=== PATIENT | male | born 1945 | race African-American/Black ===

== ENCOUNTER → 2016-06-28 | Outpatient (CLI) | payer OTHER ==
[~2016-06-28] MED LIST: AMLO10 PO; NAPR500 PO; ROBA500T PO
[2016-06-28 08:31] LABS: HEMATOCRIT 40.6 % (39.0-51.0); HEMO FLAGS DIFF FINAL; LYMPH % 24.7 % (9.0-44.0); MEAN CELL VOLUME 80.4 FL (80.0-100.0); MEAN CORPUSCULAR HEMOGLOBIN 27.8 PG (27.0-34.0); MEAN CORPUSCULAR HGB CONC 34.6 % (32.0-36.0); MONO % 10.8 % (0.0-8.0); NEUT % 58.7 % (16.0-70.0); PLATELET COUNT 224 TH/MM3 (150-450); RED BLOOD COUNT 5.05 MIL/MM3 (4.50-5.90); RED CELL DISTRIBUTION WIDTH 13.6 % (11.6-17.2)
[2016-06-28 08:32] LABS: BASOPHIL # 0.1 TH/MM3 (0-0.2); BASOPHIL % 1.1 % (0.0-2.0); EOSINOPHIL # 0.2 TH/MM3 (0-0.4); EOSINOPHIL % 4.7 % (0.0-4.0); LYMPHOCYTE # 1.2 TH/MM3 (1.0-4.8)
[2016-06-28 08:38] LABS: BLOOD, URINE NEG (NEG); GLUCOSE,URINE NEG (NEG); KETONE, URINE NEG (NEG); NITRITE,URINE NEG (NEG); SQUAMOUS EPITHELIAL CELL URINE 1 /hpf (0-5); URINE COLOR YELLOW (YELLW/STRAW)
[2016-06-28 08:40] LABS: APTT (PATIENT) 26.3 SEC (24.3-30.1)
[2016-06-28 08:56] LABS: WESTERGREN SEDIMENTATION RATE 21 mm/hr (0-20)
[2016-06-28 09:02] LABS: ALKALINE PHOSPHATASE 151 U/L (45-117); ALT (GPT) 14 U/L (12-78); ANION GAP 8 MEQ/L (5-15); AST (GOT) 6 U/L (15-37); BICARBONATE 27.4 MEQ/L (21.0-32.0); BLOOD UREA NITROGEN 13 MG/DL (7-18); CHLORIDE 108 MEQ/L (98-107); GLOMERULAR FILTRATION RATE 74 ML/MIN (>89); GLUCOSE,FASTING 86 MG/DL (74-99); SODIUM (NA) 143 MEQ/L (136-145); TOTAL BILIRUBIN ADULT 0.8 MG/DL (0.2-1.0)
== END ==
LOC: CLAB 08:03
PROVIDERS: ATTEND Family Medicine
DX: Z01.812 Encounter for preprocedural laboratory examination (principal); M25.511 Pain in right shoulder
CPT/HCPCS: 36415; 80053; 81001; 85025; 85610; 85652; 85730

== ENCOUNTER → 2016-07-04 | Outpatient (CLI) | payer MEDICARE, OTHER | LOC: CLAB 07:30 | PROVIDERS: ATTEND Family Medicine | DX: E87.6 Hypokalemia (principal) | CPT/HCPCS: 36415; 84132 ==

== ENCOUNTER → 2016-07-12 | Outpatient (CLI) | payer OTHER | LOC: CLAB 08:55 | PROVIDERS: ATTEND Family Medicine | DX: E87.1 Hypo-osmolality and hyponatremia (principal) | CPT/HCPCS: 36415; 84132 ==

== ENCOUNTER 2016-12-22 12:09 | Inpatient (IN) | payer OTHER, MEDICARE ==
[~2016-12-22] VITALS: Ht 180.3 cm; Wt 95.8 kg
[2017-02-09] MEDS ORDERED: CHLORHEXIDINE GLUCONATE 2 % 1 PACK (2 CLOTHS) TOPICAL PRN (10:15)
[2017-02-09] MEDS ORDERED: METOPROLOL TARTRATE 25 MG TAB PO PRN (10:15)
[2017-02-09] MEDS ORDERED: POVIDONE IODINE 5% (ANTISEPSIS KIT) 4 APPLICATIONS EACH NARE PRN (10:15)
[2017-02-09] MEDS ORDERED: LACTATED RINGER'S 1000 ML IV PRN (10:15)
[2017-02-09] MEDS ORDERED: ROPIVACAINE PERI-ARTICULAR INJECTION. P-ARTICULR SCH ×5 (10:15)
[2017-02-09] MEDS ORDERED: SODIUM CHLORID 0.9% 500 ML IV PRN (10:15)
[2017-02-09] MEDS ORDERED: VANCOMYCIN 1000 MG/NS 250 ML (for <70 kg) IV SCH ×2 (10:15)
[2017-02-09] MEDS ORDERED: INSULIN HUMAN REGULAR 1,000 UNITS/10 ML VIAL SQ PRN (10:15)
[2017-02-09] MEDS ORDERED: POVIDONE IODINE 7.5% SCRUB 118 ML BOTTLE TOPICAL SCH (10:15)
[2017-02-09] MEDS ORDERED: ceFAZolin 2 GM PREMIX 50 ML IV SCH (10:15)
[2017-02-09] MEDS ORDERED: BUPIVACAINE LIPOSOME PF 1.3% 20 ML VIAL ONE (10:23)
[2017-02-09] MEDS ORDERED: TRAM50TA PO (10:33)
[2017-02-09] MEDS ORDERED: LISI10TA3 PO (10:33)
[2017-02-09] MEDS ORDERED: OMEP20TA PO (10:33)
[2017-02-09] MEDS ORDERED: MELO-1 PO (10:33)
[2017-02-09 10:47] LABS: BASOPHIL % 0.9 % (0.0-2.0); EOSINOPHIL # 0.1 TH/MM3 (0-0.4); EOSINOPHIL % 3.1 % (0.0-4.0); HEMATOCRIT 41.8 % (39.0-51.0); HEMO FLAGS DIFF FINAL; LYMPH % 21.7 % (9.0-44.0); MEAN CORPUSCULAR HEMOGLOBIN 27.5 PG (27.0-34.0); MEAN CORPUSCULAR HGB CONC 33.9 % (32.0-36.0); MONO % 8.8 % (0.0-8.0); NEUT % 65.5 % (16.0-70.0); PLATELET COUNT 232 TH/MM3 (150-450); RED BLOOD COUNT 5.16 MIL/MM3 (4.50-5.90); RED CELL DISTRIBUTION WIDTH 13.3 % (11.6-17.2); WHITE BLOOD COUNT 4.6 TH/MM3 (4.0-11.0)
[2017-02-09] MEDS ORDERED: ePHEDrine/NS 25 MG/5 ML SYR IV ONE (12:00)
[2017-02-09] MEDS ORDERED: PROPOFOL 200 MG/20 ML AMP IV ONE (12:00)
[2017-02-09] MEDS ORDERED: LACTATED RINGER'S 1000 ML INJ 1,000 ML IV ONE (12:00)
[2017-02-09] MEDS ORDERED: ONDANSETRON HCL 4 MG/2 ML VIAL IV PUSH ONE (12:00)
[2017-02-09] MEDS ORDERED: GENTAMICIN SULFATE 80 MG/2 ML VIAL ONE (13:36)
[2017-02-09] MEDS ORDERED: HYDROmorphone HCL PF 2 MG/ML VIAL ONE (13:51)
[2017-02-09] MEDS ORDERED: MIDAZOLAM HCL 2 MG/2 ML VIAL ONE (14:31)
[2017-02-09] MEDS ORDERED: ALUMINUM/MAGNESIUM/SIMETH 30 ML CUP PO PRN (17:15)
[2017-02-09] MEDS ORDERED: SODIUM CHLORIDE 0.9% FLUSH 5 ML FLUSH IVF PRN (17:15)
[2017-02-09] MEDS ORDERED: MORPHINE SULFATE 8 MG/ML INJ IM PRN (17:15)
[2017-02-09] MEDS ORDERED: ACETAMINOPHEN/HYDROcodone 325 MG/7.5 MG TAB PO PRN (17:15)
[2017-02-09] MEDS ORDERED: ZOLPIDEM TARTRATE 5 MG TAB PO PRN (17:15)
[2017-02-09] MEDS ORDERED: ONDANSETRON HCL 4 MG/2 ML VIAL IVP PRN (17:15)
[2017-02-09] MEDS ORDERED: Post-op Orders (for Pharmacy) MISC XX ONE (17:15)
[2017-02-09] MEDS ORDERED: *morphine SULFATE 8 MG/ML PERIprocedure ONLY ONE (18:44)
[2017-02-09] MEDS: LACTATED RINGER'S 1000 ML INJ 1,000 ML IV SCH (18:45)
--- NOTE | 2017-02-09 19:32 | RADRPT ---
EXAM DATE/TIME: 02/09/2017 18:18 [facility] COMPARISON: KNEE LEFT LTD (1 OR 2VWS), January 03, 2017, 14:13. INDICATIONS : Post op left knee surgery. MEDICAL HISTORY : Unobtainable. SURGICAL HISTORY : Unobtainable. ENCOUNTER: Initial ACUITY: 1 day PAIN SCORE: Non-responsive. LOCATION: Left knee. FINDINGS: Two view examination of the left knee demonstrates a total knee arthroplasty. The components are appr opriately positioned. There is bony cement subjacent to the medial aspect of the tibial plate which a ppears to fill in a previous hemiarthroplasty. Suprapatellar drain is in place with no obvious effusi on. CONCLUSION: Total knee arthroplasty as above. No fracture. Bert Earl MD on February 09, 2017 at 19:29 Board Certified Radiologist. This report was verified electronically.
[2017-02-09] MEDS: ACETAMINOPHEN/HYDROcodone 325 MG/7.5 MG TAB PO PRN (20:18)
[2017-02-09] MEDS: SODIUM CHLORIDE 0.9% FLUSH 5 ML FLUSH IVF SCH (20:19)
[2017-02-09 20:35] VITALS: BP 136/91; PULSE 70; RESP 18; TEMP 98.1; O2SAT 98
[2017-02-10] VITALS: BP 116/77; PULSE 75; RESP 18; TEMP 97.3; O2SAT 100
[2017-02-10] MEDS: ACETAMINOPHEN/HYDROcodone 325 MG/7.5 MG TAB PO PRN ×3 (01:13→13:25)
[2017-02-10 04:27] VITALS: BP 121/77; PULSE 65; RESP 18; TEMP 97.4; O2SAT 98
[2017-02-10] MEDS: LACTATED RINGER'S 1000 ML INJ 1,000 ML IV SCH (06:30)
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
[2017-02-10] MEDS ORDERED: WALKER WHEELS/F1 MIS (07:08)
[2017-02-10] MEDS ORDERED: BEDSIDE COMMODE1 MI1 (07:08)
[2017-02-10] MEDS ORDERED: CPMMACHINE (07:08)
--- NOTE | 2017-02-10 07:09 | HHI.FF ---
Face to Face Verification Diagnosis: (1) Osteoarthritis of left knee Physical Therapy Gait training, Transfer training, bed to chair Knee: Total knee, Protocol: Left, Full weight bearing Right LE Weight Bearing: WB as tolerated Left LE Weight Bearing: WB as tolerated Nursing RN Days per Week: 3 x Week(s): 2 Nursing: Dressing changes (clean with alcohol and apply dry dressing ) I have seen patient Clayton Brunner on 02/10/17. My clinical findings support the need for the requested home health care services because: Deconditioned w/ increased weakness I certify that my clinical findings support that this patient is homebound because: Post-op weakness Arturo Cantor MD Feb 10, 2017 07:09
[2017-02-10 08:00] VITALS: BP 118/70; PULSE 82; RESP 17; TEMP 98; O2SAT 97
--- NOTE | 2017-02-10 08:16 | PD.OP ---
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 Varus deformity left leg, severe Postoperative Diagnosis: Same Procedure: Revision left total knee replacement arthroplasty Anesthesia: Gen. Surgeon: Garrett Cantor Forest Supervisor(s): Arturo Cantor M.D. Operation and Findings: EBL: [] INDICATION: This patient presents with long-standing arthritis of the knee. The patient had a previous medial compartment resurfacing arthroplasty by another surgeon in town approximately 8 years ago. This has failed. The patient has a significant varus deformity. This patient's function is significantly altered. Attachment record documents conservative measures. The patient now presents for surgical treatment. NOTE: Arturo Cantor was present for the entire surgical procedure as my statistical assistant. In my medical opinion his skill and care was necessary for proper management of this patient. TOURNIQUET TIME: 125 minutes COMPANY: [employer] FEMUR: Size 5, posterior stabilized, cemented TIBIA: Size 5, fixed bearing. 14 mm x 115 mm tibial stem PATELLA: 41 mm POLYETHYLENE INSERT: Size 5, 12.5, posterior stabilized mm PROCEDURE: This patient was brought the operating room and anesthetized in the supine position. The patient was positioned supine on the table. The tourniquet was placed about the thigh, and the leg was scrubbed with alcohol followed by Hibiclens followed by ChloraPrep and draped sterilely. A timeout was done, and antibiotics were given. After exsanguination the tourniquet was inflated to 250 mmHg. An anterior incision was made excising the previous incision and a median parapatellar arthrotomy was performed. The patella was released laterally and subluxed allowing freehand cut of the patella which was then sized. A metal cap was placed over the exposed patellar surface for protection. A instructor pilot hole was placed in the distal femur allowing a 7 valgus cut removing 10 mm from the distal femur. There was a resurfacing arthroplasty in the medial compartment. Very carefully this was removed using a combination of osteotomes and Casey. There was very little bone was removed from it. It appeared to be a minimally cemented component. Removal did not D structure lies the bone in that region. Anterior posterior and chamfer cuts were made. The posterior stabilize osteotomy was made. The attention was directed to the tibia. Retractors were positioned. The internal alignment guide was used allowing the lateral tibia to be used as referencing guide and cut utilizing an oscillating saw taking care to avoid any injury to the surrounding soft tissues. There was significant bony erosion medially. The tibial component was removed which created a cavitary defect. That component was loose and subsided especially anteriorly. We removed approximately 12 mm from the lateral side. This allowed us to have a very nice shelf of solid bone posteriorly having only a cavitary defect anteriorly and medially. This was sized properly. Trial reduction showed that the insert fit nicely. The patient had range of motion extension 0 flexion 125. A medial release was necessary. It included a posterior medial release and a deep MCL release partially. The bony surfaces prepared. On the back table 2 packets of methylmethacrylate were mixed. The components were cemented. Excess cement was removed. The tourniquet let down and hemostasis was controlled. The final plastic insert was inserted. Range of motion was the same as previously noted. A drain was brought through a separate stab incision. The arthrotomy was repaired with interrupted #1 Vicryl suture, subcutaneous tissue 2-0 Vicryl suture and skin with metallic linwood A sterile dressing was applied. Sponge counts, needle counts and instrument counts were all correct. The patient tolerated procedure well and was taken to recovery in satisfactory condition. FINDINGS: There was significant varus deformity related to failure of the tibial component which had subsided substantially. The final solution appeared be very satisfactory. No complication was appreciated. Garrett Cantor MD Feb 10, 2017 08:16
[2017-02-10 08:45] LABS: INTERNATIONAL NORMALIZED RATIO 1.1 RATIO; PROTHROMBIN TIME - PATIENT 12.7 SEC (9.8-11.6)
[2017-02-10] MEDS: SODIUM CHLORIDE 0.9% FLUSH 5 ML FLUSH IVF SCH (08:52)
[2017-02-10] MEDS ORDERED: amLODIPine BESYLATE 5 MG TAB PO SCH (09:00)
[2017-02-10] MEDS ORDERED: NON-FORMULARY DRUG (Omeprazole 20 MG) PO SCH (09:00)
[2017-02-10] MEDS ORDERED: PANTOPRAZOLE SOD 20 MG DELAYED RELEASE TAB PO SCH (09:00)
[2017-02-10] MEDS ORDERED: LISINOPRIL 10 MG TAB PO SCH (09:00)
[2017-02-10 10:12] VITALS: O2SAT 97
[2017-02-10 12:00] VITALS: BP 115/75; PULSE 66; RESP 18; TEMP 97.8; O2SAT 97
[2017-02-10] MEDS ORDERED: WARFARIN SOD 7.5 MG TAB PO ONE (14:45)
[2017-02-10] MEDS ORDERED: HYDR-3288 PO (14:54)
[2017-02-10] MEDS ORDERED: COUM5TAB PO (14:55)
[2017-02-10] MEDS ORDERED: WARFARIN SOD 5 MG TAB PO SCH (16:00)
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
== END 2017-02-10 16:25 | disposition home health service (06) | DRG 464 ==
LOC: HSDI 02-09 09:48 → N06B 02-09 19:57
PROVIDERS: ADMIT Orthopaedic Surgery Orthopaedic Surgery of the Spine; ATTEND Orthopaedic Surgery Orthopaedic Surgery of the Spine
PROC: 0SRD0J9 Replacement of Left Knee Joint with Synthetic Substitute, Cemented, Open Approach (ICD-10-PCS; 2017-02-09)
PROC: 0SPV0JZ Removal of Synthetic Substitute from Right Knee Joint, Tibial Surface, Open Approach (ICD-10-PCS; principal; 2017-02-09 14:31)
DX: M17.12 Unilateral primary osteoarthritis, left knee (principal); T84.093A Other mechanical complication of internal left knee prosthesis, initial encounter; I10 Essential (primary) hypertension; K21.9 Gastro-esophageal reflux disease without esophagitis; F10.10 Alcohol abuse, uncomplicated; M21.162 Varus deformity, not elsewhere classified, left knee; F17.200 Nicotine dependence, unspecified, uncomplicated; Z85.46 Personal history of malignant neoplasm of prostate
CPT/HCPCS: 73560; 85025; 85610; 86850; 86900; 86901; 86920; 94150; C1776; C9290; J0171; J0690; J0735; J1170; J1580; J1885; J2250; J2270; J2405; J2795; J3010; J7120; L1830

== ENCOUNTER → 2016-12-22 | Outpatient (CLI) | payer OTHER ==
--- NOTE | 2016-12-22 15:02 | EKG ---
Date Performed: 12/22/2016 Time Performed: 09:23:48 PTAGE: 71 years EKG: Sinus rhythm with PAC(s). Left ventricular hypertrophy by voltage only Compared to prior tracing no significant c hange Abnormal ECG PREVIOUS TRACING : 06/12/2003 10.20 DOCTOR: Roselyn Freitas Interpretating Date/Time 12/22/2016 14:57:56
== END ==
LOC: HCAV 08:40
PROVIDERS: ATTEND Orthopaedic Surgery Orthopaedic Surgery of the Spine
DX: Z01.810 Encounter for preprocedural cardiovascular examination (principal)
CPT/HCPCS: 93005

== ENCOUNTER → 2017-01-03 | Day surgery (SDC) | payer OTHER ==
[~2017-01-03] MED LIST changes: +ACETAMINOPHEN 1000 MG/100 ML VIAL IV ONE; +LACTATED RINGER'S 1000 ML INJ 1,000 ML ONE; +MIDAZOLAM HCL 2 MG/2 ML VIAL ONE; +PROPOFOL 200 MG/20 ML AMP IV ONE; +ceFAZolin INJ 1,000 MG VIAL ONE
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
== END | disposition home or self-care (01) ==
LOC: ESDC 13:13
PROVIDERS: ATTEND Orthopaedic Surgery Orthopaedic Surgery of the Spine
DX: M17.12 Unilateral primary osteoarthritis, left knee (principal); T84.098A Other mechanical complication of other internal joint prosthesis, initial encounter; M24.662 Ankylosis, left knee; Z96.652 Presence of left artificial knee joint
CPT/HCPCS: 01380; 27570; 73560; 76000; 87070; 87205; J0131; J0690; J2250; J3010; J7120

== ENCOUNTER 2018-01-21 23:07 | Inpatient (IN) ==
[2018-01-21] MEDS ORDERED: Sod Chloride 0.9% Inj 1,000 ML IV.CONT SCH (23:45)
[2018-01-21] MEDS ORDERED: Morphine Inj 4 MG/ML Vial IV.PUSH ONE (23:48)
[2018-01-22 00:02] LABS: Baso % (Auto) 0.4 % (0.0-2.0); Eos # (Auto) 0.2 th/mm3 (0.0-0.4); Eos % (Auto) 3.1 % (0.0-4.0); Hematocrit 39.1 % (39.0-51.0); Hemoglobin 13.1 gm/dL (13.0-17.0); Lymph # (Auto) 1.2 th/mm3 (1.0-4.8); Lymph % (Auto) 18.6 % (9.0-44.0); Mean Corpuscular HGB Conc 33.5 % (32.0-36.0); Mean Corpuscular Hemoglobin 27.1 pg (27.0-34.0); Mean Corpuscular Volume 80.9 fL (80.0-100.0); Mean Platelet Volume 8.4 fL (7.0-11.0); Mono # (Auto) 0.5 th/mm3 (0.0-0.9); Mono % (Auto) 7.6 % (0.0-8.0); Neut # (Auto) 4.6 th/mm3 (1.8-7.7); Neut % (Auto) 70.3 % (16.0-70.0); Platelet Count 281 th/mm3 (150-450); Red Blood Count 4.83 mil/mm3 (4.50-5.90); Red Cell Distribution Width 12.9 % (11.6-17.2); White Blood Count 6.6 th/mm3 (4.0-11.0)
[2018-01-22 00:09] LABS: Bilirubin,Urine Negative (Negative); Clarity,Urine Clear (Clear); Color,Urine Yellow (Yellw/Straw); Glucose,Urine (UA) Negative (Negative); Leukocyte Esterase,Urine Negative (Negative); Mucus,Urine Few /lpf (Occasional); Nitrite,Urine Negative (Negative); Specific Gravity,Urine 1.011 (1.002-1.035); Urobilinogen,Urine 4 or Greater mg/dL (Less than 2)
[2018-01-22 00:12] LABS: INR 1.1 Ratio; Prothrombin Time 10.7 sec (9.8-11.6)
--- NOTE | 2018-01-22 00:15 | XR ---
EXAM DATE: 01/22/2018 12:10 AM EDT AGE/SEX: 72 years / Male INDICATIONS: Abdominal pain. CLINICAL DATA: This is the patient's initial encounter. Patient reports that signs and symptoms have been present for 1 day and indicates a pain score of 0/10. MEDICAL/SURGICAL HISTORY: . Hypertension. Carcinoma, prostate None. COMPARISON: [facility], XR CHEST PA AND LAT, 12/29/2016. . FINDINGS: A single AP view of the chest demonstrates the lungs to be symmetrically aerated without evidence of mass, infiltrate or effusion. The cardiomediastinal contours are unremarkable. Osseous structures a re intact. CONCLUSION: No acute cardiopulmonary disease. Electronically signed by: Ralph Saavedra MD 01/22/2018 12:14 AM EDT
[2018-01-22 00:26] LABS: Alanine Aminotransferase 15 U/L (12-78); Anion Gap 8 meq/L (5-15); Aspartate Aminotransferase 13 U/L (15-37); Blood Urea Nitrogen 18 mg/dL (7-18); Calcium 8.7 mg/dL (8.5-10.1); Carbon Dioxide 24.6 meq/L (21.0-32.0); Chloride 110 meq/L (98-107); Glomerular Filtration Rate 63 mL/min (>89); Glucose,Random 110 mg/dL (74-106); Lipase 237 U/L (73-393); Potassium 3.1 meq/L (3.5-5.1); Sodium 143 meq/L (136-145)
[2018-01-22 00:30] LABS: Alkaline Phosphatase 133 U/L (45-117); Total Protein 8.5 g/dL (6.4-8.2); Troponin I 0.05 ng/mL (0.02-0.05)
--- NOTE | 2018-01-22 02:12 | ED ---
HPI General Chief complaint: Abdominal Pain Stated complaint: Abd pain Time Seen by Provider: 01/21/18 23:37 Source: patient History of Present Illness HPI narrative: The patient is a 72 year old male who presents to the [facility] emergency department with a history of abdominal pain that he reports is in the midepigastric area that began on Monday and radiated up to his throat. He reports that it also radiated to the left side of his rib cage. The patient reports that the pain spontaneously resolved. He reports that it recurred again today. He reports that earlier began to radiate into the right side of his chest and now is in the center of his chest. He reports having some shortness of breath that has been associated with this this evening. The patient reports having history of acid reflux, however he reports that the symptoms seem different and he has been taking his reflux medication as prescribed. The patient denies any history of coronary artery disease. He does report having a history of hypertension, tobacco use, and hyperlipidemia. He cannot recall when he last had a stress test done. He denies any prior history of diabetes. He denies having any lower extremity edema, calf pain or or erythema. He denies having any prior history of DVT or PE. The patient denies having any diaphoresis associated with this. He reports having nausea without vomiting. On review of systems otherwise, the patient denies having any known recent fevers, neck pain, diarrhea, urinary symptoms, or neurologic symptoms. The patient reports that over the last couple of days he has had a cough that is dry in character. Related Data Home Medications Medication Instructions Recorded Confirmed amlodipine 10 mg PO DAILY 01/22/18 01/22/18 lisinopril 10 mg PO DAILY 01/22/18 01/22/18 losartan-hydrochlorothiazide 1 tab PO DAILY 01/22/18 01/22/18 meloxicam 15 mg PO DAILY 01/22/18 01/22/18 methocarbamol 750 mg PO QID 01/22/18 01/22/18 omeprazole 20 mg PO DAILY 01/22/18 01/22/18 tramadol 50 mg PO Q4-6H PRN 01/22/18 01/22/18 Allergies Allergy/AdvReac Type Severity Reaction Status Date / Time No Known Allergies Allergy Unverified 01/21/18 23:12 Review of Systems ROS: all other systems reviewed are negative (Except for that which was mentioned in the HPI) [facility] Medical History Medical History High cholesterol (Acute) Hypertension (Acute) Tobacco abuse (Acute) Surgical History Surgical History History of total left knee replacement (TKR) (Acute) History of total right knee replacement (TKR) (Acute) Social History Social History Substance History: No History of Abuse Second Hand Smoke Exposure: Yes Smoking Status: Current every day smoker Tobacco Type: Cigarettes How Often Do You Have a Drink Containing Alcohol: Monthly or less Recent Travel in [facility] within the Last 8 Weeks: No Recent Out of Country Travel within the Last 8 Weeks: No Immunization History Tetanus Immunization: <5 Years Hx Influenza Vaccine This Season: Yes Exam Const General: cooperative, no acute distress and well developed Nutritional Appearance: well nourished Orientation: alert, awake and oriented x3 HENMT Head: normocephalic and atraumatic Nose: no nasal discharge and no epistaxis Mouth: moist mucous membranes Throat: posterior oropharynx normal and uvula midline Eyes Sclera: normal sclerae Pupils: PERRL Neck Neck: no meningeal signs, trachea midline and no JVD Resp Effort & Inspection: no use of accessory muscles Auscultation: clear to auscultation bilaterally Cardio Rate: regular rate (No pulse deficits to the extremities on simultaneous auscultation and palpation of his radial artery) Rhythm: regular rhythm Heart Sounds: no murmurs GI Inspection: non-distended Palpation: soft, no hepatosplenomegaly, no guarding, not rigid and tender in the epigastrum; not in the LLQ, not in the RLQ, not in the LUQ, not in the RUQ, not at McBurney's point, not suprapubicly, Lomas's sign negative and with no rebound tenderness Auscultation: normal bowel sounds Back/Spine/Pelvis Back: no CVA tenderness Skin General: dry skin (warm) Neuro General: alert, awake and oriented x3 Cranial Nerves: other (No facial asymmetry.) Speech: speech normal Motor: no movement abnormalities noted Extrem General: normal to inspection (No calf tenderness on palpation. 2+ pulses in all 4 extremities per), no clubbing, no cyanosis and no edema Psych Mood: congruent mood Affect: normal affect Judgment: judgment good Course Initial Documented Vital Signs Temperature 97.5 F L 01/21/18 23:12 Pulse Rate 89 01/21/18 23:12 Respiratory Rate 22 01/21/18 23:12 Blood Pressure 134/73 01/21/18 23:12 Pulse Oximetry 90 L 01/21/18 23:12 Last Documented Vital Signs Temperature 98.0 F 01/23/18 15:43 Pulse Rate 87 01/23/18 18:00 Respiratory Rate 18 01/22/18 15:25 Blood Pressure 138/94 H 01/23/18 15:43 Pulse Oximetry 97 01/23/18 17:11 Medical Decision Making MDM Narrative Medical decision making narrative: During the course of the patient's emergency department visit, the patient's history, examination, and differential diagnosis were reviewed with the patient. The patient was placed on a personnel monitor with oximetry and frequent blood pressure monitoring. The patient had IV access obtained and blood work sent for analysis. The diagnostic evaluation was started regarding this patient's upper abdominal pain and chest pain. The patient was provided a DuoNeb 1, aspirin 324 mg p.o. 1, nitroglycerin 1 inch to the chest wall, nitroglycerin sublingual 1 as needed chest pain. The patient was given morphine 4 mg IV for pain, Zofran 4 mg IV for nausea. The patient was started on normal saline IV fluids at 125 mL/h. The patient's diagnostic evaluation was remarkable for an initial troponin I that was 0.05, chemistry initially revealed a potassium of 3.1 which was supplemented, chloride 110, GFR of 63, CPK 327, CBC shows a white count of 6.6, platelets within normal limits, hemoglobin initially 13.1. The patient's chest x-ray revealed no acute cardiopulmonary disease, CT scan of the abdomen and pelvis showed no acute abnormality. The patient will be admitted to the chest pain center for rule out serial cardiac enzyme protocol followed by consideration of stress testing. Medical Screen Exam Complete: Yes Emergency Medical Condition: Yes Differential Diagnosis Differential Diagnosis: Acute coronary syndrome, versus pancreatitis, versus pneumothorax, versus congestive heart failure. Medical Records Medical records reviewed: Yes I reviewed the patient's medical records. Lab Data Lab results reviewed: Yes I reviewed the patient's lab results. Result diagrams: 01/23/18 12:51 01/23/18 06:24 Lab Results 01/21/18 01/21/18 01/21/18 Range/Units 23:55 23:55 23:55 WBC 6.6 (4.0-11.0) th/mm3 RBC 4.83 (4.50-5.90) mil/mm3 Hgb 13.1 (13.0-17.0) gm/dL Hct 39.1 (39.0-51.0) % MCV 80.9 (80.0-100.0) fL MCH 27.1 (27.0-34.0) pg MCHC 33.5 (32.0-36.0) % RDW 12.9 (11.6-17.2) % Plt Count 281 (150-450) th/mm3 MPV 8.4 (7.0-11.0) fL Neut % (Auto) 70.3 H (16.0-70.0) % Lymph % (Auto) 18.6 (9.0-44.0) % [place] % (Auto) 7.6 (0.0-8.0) % Eos % (Auto) 3.1 (0.0-4.0) % Baso % (Auto) 0.4 (0.0-2.0) % Neut # (Auto) 4.6 (1.8-7.7) th/mm3 Lymph # (Auto) 1.2 (1.0-4.8) th/mm3 [place] # (Auto) 0.5 (0.0-0.9) th/mm3 Eos # (Auto) 0.2 (0.0-0.4) th/mm3 Baso # (Auto) 0.0 (0.0-0.2) th/mm3 WBC Differential . Differential Comment Auto diff final PT 10.7 (9.8-11.6) sec INR 1.1 Ratio APTT 28.0 (24.3-30.1) sec D-Dimer Quant (PE/DVT) (0.00-0.50) mg/L FEU Sodium 143 (136-145) meq/L Potassium 3.1 L (3.5-5.1) meq/L Chloride 110 H (98-107) meq/L Carbon Dioxide 24.6 (21.0-32.0) meq/L Anion Gap 8 (5-15) meq/L BUN 18 (7-18) mg/dL Creatinine 1.36 H (0.60-1.30) mg/dL Estimated GFR 63 L (>89) mL/min Random Glucose 110 H (74-106) mg/dL Lactic Acid (0.4-2.0) mmol/L Calcium 8.7 (8.5-10.1) mg/dL Total Bilirubin 0.5 (0.2-1.0) mg/dL AST 13 L (15-37) U/L ALT 15 (12-78) U/L Alkaline Phosphatase 133 H (45-117) U/L Total Creatine Kinase (39-308) U/L CK-MB (CK-2) (0.5-3.6) ng/mL CK-MB (CK-2) % (0.0-4.0) % Troponin I 0.05 (0.02-0.05) ng/mL Total Protein 8.5 H (6.4-8.2) g/dL Albumin 4.0 (3.4-5.0) g/dL Triglycerides (42-150) mg/dL Cholesterol (120-200) mg/dL LDL Cholesterol, Calc (0-99) mg/dL HDL Cholesterol (40.0-60.0) mg/dL Cholesterol/HDL Ratio Ratio Lipase 237 (73-393) U/L Urine Color (Yellw/Straw) Urine Clarity (Clear) Urine pH (5.0-8.5) Ur Specific [place] (1.002-1.035) Urine Protein (Neg-Trace) mg/dL Urine Glucose (UA) (Negative) mg/dL Urine Ketones (Negative) mg/dL Urine Occult Blood (Negative) Urine Nitrate (Negative) Urine Bilirubin (Negative) Urine Urobilinogen (Less than 2) mg/dL Ur Leukocyte Esterase (Negative) Urine RBC (0-3) /hpf Urine WBC (0-5) /hpf Urine Mucus (Occasional) /lpf Micro UA Comment Urine Culture Comments 01/21/18 01/21/18 01/22/18 Range/Units 23:55 23:55 04:00 WBC (4.0-11.0) th/mm3 RBC (4.50-5.90) mil/mm3 Hgb (13.0-17.0) gm/dL Hct (39.0-51.0) % MCV (80.0-100.0) fL MCH (27.0-34.0) pg MCHC (32.0-36.0) % RDW (11.6-17.2) % Plt Count (150-450) th/mm3 MPV (7.0-11.0) fL Neut % (Auto) (16.0-70.0) % Lymph % (Auto) (9.0-44.0) % [place] % (Auto) (0.0-8.0) % Eos % (Auto) (0.0-4.0) % Baso % (Auto) (0.0-2.0) % Neut # (Auto) (1.8-7.7) th/mm3 Lymph # (Auto) (1.0-4.8) th/mm3 [place] # (Auto) (0.0-0.9) th/mm3 Eos # (Auto) (0.0-0.4) th/mm3 Baso # (Auto) (0.0-0.2) th/mm3 WBC Differential Differential Comment PT (9.8-11.6) sec INR Ratio APTT (24.3-30.1) sec D-Dimer Quant (PE/DVT) (0.00-0.50) mg/L FEU Sodium (136-145) meq/L Potassium (3.5-5.1) meq/L Chloride (98-107) meq/L Carbon Dioxide (21.0-32.0) meq/L Anion Gap (5-15) meq/L BUN (7-18) mg/dL Creatinine (0.60-1.30) mg/dL Estimated GFR (>89) mL/min Random Glucose (74-106) mg/dL Lactic Acid 1.0 (0.4-2.0) mmol/L Calcium (8.5-10.1) mg/dL Total Bilirubin (0.2-1.0) mg/dL AST (15-37) U/L ALT (12-78) U/L Alkaline Phosphatase (45-117) U/L Total Creatine Kinase 327 H (39-308) U/L CK-MB (CK-2) 3.2 (0.5-3.6) ng/mL CK-MB (CK-2) % 1.0 (0.0-4.0) % Troponin I 0.51 H (0.02-0.05) ng/mL Total Protein (6.4-8.2) g/dL Albumin (3.4-5.0) g/dL Triglycerides (42-150) mg/dL Cholesterol (120-200) mg/dL LDL Cholesterol, Calc (0-99) mg/dL HDL Cholesterol (40.0-60.0) mg/dL Cholesterol/HDL Ratio Ratio Lipase (73-393) U/L Urine Color Yellow (Yellw/Straw) Urine Clarity Clear (Clear) Urine pH 6.0 (5.0-8.5) Ur Specific [place] 1.011 (1.002-1.035) Urine Protein Negative (Neg-Trace) mg/dL Urine Glucose (UA) Negative (Negative) mg/dL Urine Ketones Trace (Negative) mg/dL Urine Occult Blood Small H (Negative) Urine Nitrate Negative (Negative) Urine Bilirubin Negative (Negative) Urine Urobilinogen 4 or greater (Less than 2) mg/dL Ur Leukocyte Esterase Negative (Negative) Urine RBC 1 (0-3) /hpf Urine WBC 2 (0-5) /hpf Urine Mucus Few H (Occasional) /lpf Micro UA Comment Culture not ind Urine Culture Comments Culture not ind 01/22/18 01/22/18 01/22/18 Range/Units 06:25 13:38 13:38 WBC 5.6 (4.0-11.0) th/mm3 RBC 4.38 L (4.50-5.90) mil/mm3 Hgb 11.9 L (13.0-17.0) gm/dL Hct 36.0 L (39.0-51.0) % MCV 82.3 (80.0-100.0) fL MCH 27.1 (27.0-34.0) pg MCHC 32.9 (32.0-36.0) % RDW 12.5 (11.6-17.2) % Plt Count 261 (150-450) th/mm3 MPV 8.6 (7.0-11.0) fL Neut % (Auto) (16.0-70.0) % Lymph % (Auto) (9.0-44.0) % [place] % (Auto) (0.0-8.0) % Eos % (Auto) (0.0-4.0) % Baso % (Auto) (0.0-2.0) % Neut # (Auto) (1.8-7.7) th/mm3 Lymph # (Auto) (1.0-4.8) th/mm3 [place] # (Auto) (0.0-0.9) th/mm3 Eos # (Auto) (0.0-0.4) th/mm3 Baso # (Auto) (0.0-0.2) th/mm3 WBC Differential Differential Comment PT 11.2 (9.8-11.6) sec INR 1.1 Ratio APTT 35.2 H D (24.3-30.1) sec D-Dimer Quant (PE/DVT) (0.00-0.50) mg/L FEU Sodium (136-145) meq/L Potassium (3.5-5.1) meq/L Chloride (98-107) meq/L Carbon Dioxide (21.0-32.0) meq/L Anion Gap (5-15) meq/L BUN (7-18) mg/dL Creatinine (0.60-1.30) mg/dL Estimated GFR (>89) mL/min Random Glucose (74-106) mg/dL Lactic Acid (0.4-2.0) mmol/L Calcium (8.5-10.1) mg/dL Total Bilirubin (0.2-1.0) mg/dL AST (15-37) U/L ALT (12-78) U/L Alkaline Phosphatase (45-117) U/L Total Creatine Kinase 317 H (39-308) U/L CK-MB (CK-2) 3.4 (0.5-3.6) ng/mL CK-MB (CK-2) % 1.1 (0.0-4.0) % Troponin I 0.44 H (0.02-0.05) ng/mL Total Protein (6.4-8.2) g/dL Albumin (3.4-5.0) g/dL Triglycerides (42-150) mg/dL Cholesterol (120-200) mg/dL LDL Cholesterol, Calc (0-99) mg/dL HDL Cholesterol (40.0-60.0) mg/dL Cholesterol/HDL Ratio Ratio Lipase (73-393) U/L Urine Color (Yellw/Straw) Urine Clarity (Clear) Urine pH (5.0-8.5) Ur Specific [place] (1.002-1.035) Urine Protein (Neg-Trace) mg/dL Urine Glucose (UA) (Negative) mg/dL Urine Ketones (Negative) mg/dL Urine Occult Blood (Negative) Urine Nitrate (Negative) Urine Bilirubin (Negative) Urine Urobilinogen (Less than 2) mg/dL Ur Leukocyte Esterase (Negative) Urine RBC (0-3) /hpf Urine WBC (0-5) /hpf Urine Mucus (Occasional) /lpf Micro UA Comment Urine Culture Comments 01/22/18 01/22/18 01/22/18 Range/Units 13:38 13:38 13:38 WBC (4.0-11.0) th/mm3 RBC (4.50-5.90) mil/mm3 Hgb (13.0-17.0) gm/dL Hct (39.0-51.0) % MCV (80.0-100.0) fL MCH (27.0-34.0) pg MCHC (32.0-36.0) % RDW (11.6-17.2) % Plt Count (150-450) th/mm3 MPV (7.0-11.0) fL Neut % (Auto) (16.0-70.0) % Lymph % (Auto) (9.0-44.0) % [place] % (Auto) (0.0-8.0) % Eos % (Auto) (0.0-4.0) % Baso % (Auto) (0.0-2.0) % Neut # (Auto) (1.8-7.7) th/mm3 Lymph # (Auto) (1.0-4.8) th/mm3 [place] # (Auto) (0.0-0.9) th/mm3 Eos # (Auto) (0.0-0.4) th/mm3 Baso # (Auto) (0.0-0.2) th/mm3 WBC Differential Differential Comment PT (9.8-11.6) sec INR Ratio APTT (24.3-30.1) sec D-Dimer Quant (PE/DVT) 5.15 H (0.00-0.50) mg/L FEU Sodium 144 (136-145) meq/L Potassium 3.0 L (3.5-5.1) meq/L Chloride 113 H (98-107) meq/L Carbon Dioxide 24.4 (21.0-32.0) meq/L Anion Gap 7 (5-15) meq/L BUN 15 (7-18) mg/dL Creatinine 1.07 (0.60-1.30) mg/dL Estimated GFR 83 L (>89) mL/min Random Glucose 87 (74-106) mg/dL Lactic Acid (0.4-2.0) mmol/L Calcium 8.4 L (8.5-10.1) mg/dL Total Bilirubin (0.2-1.0) mg/dL AST (15-37) U/L ALT (12-78) U/L Alkaline Phosphatase (45-117) U/L Total Creatine Kinase (39-308) U/L CK-MB (CK-2) (0.5-3.6) ng/mL CK-MB (CK-2) % (0.0-4.0) % Troponin I (0.02-0.05) ng/mL Total Protein (6.4-8.2) g/dL Albumin (3.4-5.0) g/dL Triglycerides 107 (42-150) mg/dL Cholesterol 142 (120-200) mg/dL LDL Cholesterol, Calc 90 (0-99) mg/dL HDL Cholesterol 31.0 L (40.0-60.0) mg/dL Cholesterol/HDL Ratio 4.58 Ratio Lipase (73-393) U/L Urine Color (Yellw/Straw) Urine Clarity (Clear) Urine pH (5.0-8.5) Ur Specific [place] (1.002-1.035) Urine Protein (Neg-Trace) mg/dL Urine Glucose (UA) (Negative) mg/dL Urine Ketones (Negative) mg/dL Urine Occult Blood (Negative) Urine Nitrate (Negative) Urine Bilirubin (Negative) Urine Urobilinogen (Less than 2) mg/dL Ur Leukocyte Esterase (Negative) Urine RBC (0-3) /hpf Urine WBC (0-5) /hpf Urine Mucus (Occasional) /lpf Micro UA Comment Urine Culture Comments 01/23/18 01/23/18 01/23/18 Range/Units 06:24 06:24 12:51 WBC 5.6 5.6 (4.0-11.0) th/mm3 RBC 4.48 L 4.40 L (4.50-5.90) mil/mm3 Hgb 12.3 L 12.1 L (13.0-17.0) gm/dL Hct 36.6 L 35.6 L (39.0-51.0) % MCV 81.7 80.8 (80.0-100.0) fL MCH 27.5 27.5 (27.0-34.0) pg MCHC 33.6 34.0 (32.0-36.0) % RDW 12.8 12.7 (11.6-17.2) % Plt Count 261 272 (150-450) th/mm3 MPV 9.0 8.3 (7.0-11.0) fL Neut % (Auto) (16.0-70.0) % Lymph % (Auto) (9.0-44.0) % [place] % (Auto) (0.0-8.0) % Eos % (Auto) (0.0-4.0) % Baso % (Auto) (0.0-2.0) % Neut # (Auto) (1.8-7.7) th/mm3 Lymph # (Auto) (1.0-4.8) th/mm3 [place] # (Auto) (0.0-0.9) th/mm3 Eos # (Auto) (0.0-0.4) th/mm3 Baso # (Auto) (0.0-0.2) th/mm3 WBC Differential Differential Comment PT (9.8-11.6) sec INR Ratio APTT (24.3-30.1) sec D-Dimer Quant (PE/DVT) (0.00-0.50) mg/L FEU Sodium 142 (136-145) meq/L Potassium 3.4 L (3.5-5.1) meq/L Chloride 112 H (98-107) meq/L Carbon Dioxide 21.6 (21.0-32.0) meq/L Anion Gap 8 (5-15) meq/L BUN 9 (7-18) mg/dL Creatinine 1.02 (0.60-1.30) mg/dL Estimated GFR 88 L (>89) mL/min Random Glucose 89 (74-106) mg/dL Lactic Acid (0.4-2.0) mmol/L Calcium 8.4 L (8.5-10.1) mg/dL Total Bilirubin (0.2-1.0) mg/dL AST (15-37) U/L ALT (12-78) U/L Alkaline Phosphatase (45-117) U/L Total Creatine Kinase 240 (39-308) U/L CK-MB (CK-2) (0.5-3.6) ng/mL CK-MB (CK-2) % (0.0-4.0) % Troponin I (0.02-0.05) ng/mL Total Protein (6.4-8.2) g/dL Albumin (3.4-5.0) g/dL Triglycerides (42-150) mg/dL Cholesterol (120-200) mg/dL LDL Cholesterol, Calc (0-99) mg/dL HDL Cholesterol (40.0-60.0) mg/dL Cholesterol/HDL Ratio Ratio Lipase (73-393) U/L Urine Color (Yellw/Straw) Urine Clarity (Clear) Urine pH (5.0-8.5) Ur Specific [place] (1.002-1.035) Urine Protein (Neg-Trace) mg/dL Urine Glucose (UA) (Negative) mg/dL Urine Ketones (Negative) mg/dL Urine Occult Blood (Negative) Urine Nitrate (Negative) Urine Bilirubin (Negative) Urine Urobilinogen (Less than 2) mg/dL Ur Leukocyte Esterase (Negative) Urine RBC (0-3) /hpf Urine WBC (0-5) /hpf Urine Mucus (Occasional) /lpf Micro UA Comment Urine Culture Comments 01/23/18 01/23/18 Range/Units 12:51 19:15 WBC (4.0-11.0) th/mm3 RBC (4.50-5.90) mil/mm3 Hgb (13.0-17.0) gm/dL Hct (39.0-51.0) % MCV (80.0-100.0) fL MCH (27.0-34.0) pg MCHC (32.0-36.0) % RDW (11.6-17.2) % Plt Count (150-450) th/mm3 MPV (7.0-11.0) fL Neut % (Auto) (16.0-70.0) % Lymph % (Auto) (9.0-44.0) % [place] % (Auto) (0.0-8.0) % Eos % (Auto) (0.0-4.0) % Baso % (Auto) (0.0-2.0) % Neut # (Auto) (1.8-7.7) th/mm3 Lymph # (Auto) (1.0-4.8) th/mm3 [place] # (Auto) (0.0-0.9) th/mm3 Eos # (Auto) (0.0-0.4) th/mm3 Baso # (Auto) (0.0-0.2) th/mm3 WBC Differential Differential Comment PT 11.2 (9.8-11.6) sec INR 1.1 Ratio APTT 27.7 D 62.2 H D (24.3-30.1) sec D-Dimer Quant (PE/DVT) (0.00-0.50) mg/L FEU Sodium (136-145) meq/L Potassium (3.5-5.1) meq/L Chloride (98-107) meq/L Carbon Dioxide (21.0-32.0) meq/L Anion Gap (5-15) meq/L BUN (7-18) mg/dL Creatinine (0.60-1.30) mg/dL Estimated GFR (>89) mL/min Random Glucose (74-106) mg/dL Lactic Acid (0.4-2.0) mmol/L Calcium (8.5-10.1) mg/dL Total Bilirubin (0.2-1.0) mg/dL AST (15-37) U/L ALT (12-78) U/L Alkaline Phosphatase (45-117) U/L Total Creatine Kinase (39-308) U/L CK-MB (CK-2) (0.5-3.6) ng/mL CK-MB (CK-2) % (0.0-4.0) % Troponin I (0.02-0.05) ng/mL Total Protein (6.4-8.2) g/dL Albumin (3.4-5.0) g/dL Triglycerides (42-150) mg/dL Cholesterol (120-200) mg/dL LDL Cholesterol, Calc (0-99) mg/dL HDL Cholesterol (40.0-60.0) mg/dL Cholesterol/HDL Ratio Ratio Lipase (73-393) U/L Urine Color (Yellw/Straw) Urine Clarity (Clear) Urine pH (5.0-8.5) Ur Specific [place] (1.002-1.035) Urine Protein (Neg-Trace) mg/dL Urine Glucose (UA) (Negative) mg/dL Urine Ketones (Negative) mg/dL Urine Occult Blood (Negative) Urine Nitrate (Negative) Urine Bilirubin (Negative) Urine Urobilinogen (Less than 2) mg/dL Ur Leukocyte Esterase (Negative) Urine RBC (0-3) /hpf Urine WBC (0-5) /hpf Urine Mucus (Occasional) /lpf Micro UA Comment Urine Culture Comments Imaging Data Radiologist's impression: Chest X-Ray 01/21/18 23:55 CONCLUSION: No acute cardiopulmonary disease. Abdomen/Pelvis CT 01/22/18 00:00 CONCLUSION: 1. No acute abnormality to explain the patient's pain. 2. Cholelithiasis. 3. Colonic diverticulosis. Chest CTA 01/23/18 00:00 CONCLUSION: 1. Examination is positive for multiple bilateral central and peripheral pulmonary emboli. Trace pleural fluid and subsegmental atelectasis in the lungs. Venous Doppler Study 01/23/18 00:00 CONCLUSION: 1. Left calf DVT with partially occlusive thrombus extending to the popliteal vein. 2. No sonographic evidence for right lower extremity DVT. ECG Data Attestation: I personally reviewed and interpreted this ECG as follows: Interpretation: The patient had a EKG done on arrival. The patient's EKG shows a sinus rhythm with occasional supraventricular premature complexes, heart rate of 85, QRS duration is 92 ms, QTC is [address] segment elevation, T waves are inverted in V1. Discharge Plan Discharge Disposition Patient Disposition: 30 Still Patient Discharge Details Diagnosis: Chest pain, rule out acute myocardial infarction Physicians Team ED Provider: Lily Tripp Primary Care Provider: UNKNOWN, Attending Provider: Nicki Hernández Other Providers: Lacy House ; Marcial Beyer ; Bryan Jewell Status ED Status: Left Department Discharge Information Discharge Date/Time: 01/22/18 06:49
--- NOTE | 2018-01-22 02:36 | CT ---
EXAM DATE: 01/22/2018 2:24 AM EDT AGE/SEX: 72 years / Male INDICATIONS: Right sided abdominal pain X 5 days. CLINICAL DATA: This is the patient's initial encounter. Patient reports that signs and symptoms have been present for 4 - 6 days and indicates a pain score of 10/10. MEDICAL/SURGICAL HISTORY: Hypertension. . Left knee surgery ORAL CONTRAST: No oral contrast ingested. RADIATION DOSE: 12.08 CTDI (mGy) COMPARISON: No prior exams available for comparison. TECHNIQUE: Multiple contiguous axial images were obtained through the abdomen and pelvis following b olus infusion of 96 ml Omnipaque 350 (iohexol) nonionic water-soluble contrast as a single exam dos e. No oral contrast ingested. Using automated exposure control and adjustment of the mA and/or kV ac cording to patient size, radiation dose was kept as low as reasonably achievable to obtain optimal di agnostic quality images. DICOM format image data is available electronically for review and comparis on. FINDINGS: Lower Lungs: The visualized lower lungs are clear. Liver: The liver has a homogeneous density. 2.2 cm cyst involving the left lobe. Hounsfield units are 16. There is no dilation of the biliary tree. 2 tiny calcified gallstones layering within an otherwi se normal-appearing gallbladder. Spleen: Homogeneous density without enlargement. Pancreas: Unremarkable without mass or calcification. Kidneys: Normal in size and shape. No evidence of mass or hydronephrosis. Adrenal Glands: Unremarkable. Aorta: The aorta and proximal iliac vessels are grossly unremarkable without aneurysmal dilation. Bowel/Mesentery: Scattered colonic diverticuli most pronounced within the sigmoid region. No acute i nflammation. Appendix is normal by CT criteria. The bowel loops are grossly unremarkable. The cecum a nd sigmoid colon have a normal configuration. Abdominal Wall: Intact. Retroperitoneum: No evidence of adenopathy in the retrocrural, para-aortic, or deep pelvic regions. Bladder: Contours are smooth. Reproductive Organs: No abnormal masses or calcifications seen. Inguinal: The inguinal region is unremarkable without evidence of adenopathy. Bony Structures: Unremarkable. CONCLUSION: 1. No acute abnormality to explain the patient's pain. 2. Cholelithiasis. 3. Colonic diverticulosis. Electronically signed by: Ralph Saavedra MD 01/22/2018 2:34 AM EDT
[2018-01-22] MEDS ORDERED: Iohexol 350 MG/ML 100 ML Vial (for Cath Lab) IVCONTRAST ONE (02:56)
[2018-01-22] MEDS ORDERED: Acetaminophen 500 MG Tablet PO PRN (03:30)
[2018-01-22 04:32] LABS: Troponin I 0.51 ng/mL (0.02-0.05)
[2018-01-22 04:44] LABS: Creatine Kinase MB 3.2 ng/mL (0.5-3.6)
[2018-01-22] MEDS ORDERED: Heparin 10,000 UNITS/10 ML Vial (for IV use) IV.PUSH STA (05:39)
[2018-01-22] MEDS ORDERED: Heparin Drip 25,000 UNIT/250 ML BAG IV.CONT PRN (05:39)
[2018-01-22 06:49] LABS: Troponin I 0.44 ng/mL (0.02-0.05)
[2018-01-22 07:02] LABS: CKMB Percent 1.1 % (0.0-4.0); Creatine Kinase MB 3.4 ng/mL (0.5-3.6)
[2018-01-22] MEDS ORDERED: Famotidine 20 MG Tablet PO SCH (09:00)
--- NOTE | 2018-01-22 09:18 | P.HP ---
History of Present Illness Service: [place] [facility] Primary Care Physician: [facility] department Chief Complaint: Burning epigastric pain/chest pain History of Present Illness: Patient is a 72-year-old male with known history of hypertension, who is admitted last evening for chest pain. Takes 2 types of blood pressure For the past 2 weeks now has been experiencing epigastric burning pain lasting for about 2-3 hours at that time with no associated nausea or vomiting. This would last for few hours. Denies any fever chills cough. Last evening pain was radiating to the left side of the chest "ribs then moved to the right". This was worse when he coughed. This prompted patient to come into the ER and admitted for further evaluation. Patient denies any bowel movement changes irregular brown stools however he admits that it was stools last loose last evening. Patient states history of ulcer and had an EEG date EGD done 10 years ago which shows a small ulcer. Patient on review of medications is unsure about his medications - listed was Mobic but states states he thinks he is not taking it. He said he will have his son bring him his for his list of medications. He states he is on 2 types of blood pressure medications. When I told him names -what these are he said he is not familiar and as stated will have his son bring in medications. [facility] - History History Provided By: Patient - Medical History Medical History: Medical History (Last Updated 01/22/18 @ 03:35 by Lily Tripp MD) High cholesterol Hypertension Tobacco abuse - Surgical History Surgical History: Surgical History (Last Updated 01/22/18 @ 03:35 by Lily Tripp MD) History of total left knee replacement (TKR) History of total right knee replacement (TKR) - Tobacco History Second Hand Smoke Exposure: Yes Tobacco Use In Past 30 Days: Yes Smoking Status: Current every day smoker Tobacco Type: Cigarettes - Alcohol History How Often Do You Have a Drink Containing Alcohol: Monthly or less - Substance Use History Substance History: No History of Abuse - Travel History Recent Travel in the [place] Within the Last 8 Weeks: No Recent Travel Out of the Country Within the Last 8 Weeks: No - Immunization History Tetanus Immunization: <5 Years Hx Influenza Vaccine This Season: Yes Medications and Allergies Active Medications: Active Medications Acetaminophen (Tylenol) 500 mg PO Q4H PRN PRN Reason: HEADACHE Famotidine (Pepcid) 20 mg PO BID [facility] Heparin Sodium (Porcine) (Heparin Inj) 2,500 units IV.PUSH UNSCH PRN PRN Reason: aPTT 25-39 Heparin Sodium/Dextrose (Heparin/D5w 25,000 U/250 Ml) 25,000 unit in 250 mls @ 10 mls/hr IV.CONT TITRATE PRN; Protocol PRN Reason: Per Protocol Last Admin: 01/22/18 06:03 Dose: 1,000 units/hr, 10 mls/hr Sodium Chloride (Ns Flush) 2 ml IV.FLUSH BID [place] Sodium Chloride (Ns Flush) 2 ml IV.FLUSH PRN PRN PRN Reason: FLUSH AFTER USING IV ACCESS Allergies Allergy/AdvReac Type Severity Reaction Status Date / Time No Known Allergies Allergy Unverified 01/21/18 23:12 Home Medications Medication Instructions Recorded Confirmed Type amlodipine 10 mg PO DAILY 01/22/18 01/22/18 History lisinopril 10 mg PO DAILY 01/22/18 01/22/18 History methocarbamol 750 mg PO QID 01/22/18 01/22/18 History omeprazole 20 mg PO DAILY 01/22/18 01/22/18 History tramadol 50 mg PO Q4-6H PRN 01/22/18 01/22/18 History Exam Vital signs: Vital Signs 01/21/18 23:12 01/21/18 23:15 01/22/18 01:12 Temperature 97.5 F L Pulse Rate 89 82 Respiratory Rate 22 20 20 Blood Pressure 134/73 136/72 Pulse Oximetry 90 L 98 01/22/18 02:30 01/22/18 02:36 01/22/18 03:08 Temperature Pulse Rate 90 88 Respiratory Rate 18 21 20 Blood Pressure 136/65 Pulse Oximetry 96 01/22/18 03:43 01/22/18 05:04 01/22/18 06:00 Temperature Pulse Rate 79 72 Respiratory Rate 16 20 Blood Pressure 101/59 L 113/71 Pulse Oximetry 93 L 90 L 01/22/18 07:01 Temperature 97.7 F Pulse Rate 64 Respiratory Rate 18 Blood Pressure 132/85 Pulse Oximetry 94 L Intake & Output 01/21/18 01/22/18 01/22/18 18:59 06:59 18:59 Weight 83.915 kg Narrative: Awake alert not in acute distress Anicteric sclerae, pink palpebral conjunctivae Neck supple no JVD no rigidity no bruit Chest lungs bilateral breath sounds equal no rales no wheezes Regular rhythm no murmur Abdomen is soft good bowel sounds no guarding no rigidity no tenderness negative Lomas sign Extremities no edema good peripheral pulses Neurologic exam unremarkable Results - Labs CBC & Chem 7: 01/25/18 05:38 01/23/18 06:24 Labs: Laboratory Results - last 24 hr 01/21/18 01/21/18 01/21/18 23:55 23:55 23:55 WBC 6.6 RBC 4.83 Hgb 13.1 Hct 39.1 MCV 80.9 MCH 27.1 MCHC 33.5 RDW 12.9 Plt Count 281 MPV 8.4 Neut % (Auto) 70.3 H Lymph % (Auto) 18.6 Gl[place]ock % (Auto) 7.6 Eos % (Auto) 3.1 Baso % (Auto) 0.4 Neut # (Auto) 4.6 Lymph # (Auto) 1.2 [place] # (Auto) 0.5 Eos # (Auto) 0.2 Baso # (Auto) 0.0 WBC Differential . Differential Comment Auto diff final PT 10.7 INR 1.1 APTT 28.0 Sodium 143 Potassium 3.1 L Chloride 110 H Carbon Dioxide 24.6 Anion Gap 8 BUN 18 Creatinine 1.36 H Estimated GFR 63 L Random Glucose 110 H Lactic Acid Calcium 8.7 Total Bilirubin 0.5 AST 13 L ALT 15 Alkaline Phosphatase 133 H Total Creatine Kinase CK-MB (CK-2) CK-MB (CK-2) % Troponin I 0.05 Total Protein 8.5 H Albumin 4.0 Lipase 237 Urine Color Urine Clarity Urine pH Ur Specific [place] Urine Protein Urine Glucose (UA) Urine Ketones Urine Occult Blood Urine Nitrate Urine Bilirubin Urine Urobilinogen Ur Leukocyte Esterase Urine RBC Urine WBC Urine Mucus Micro UA Comment Urine Culture Comments 01/21/18 01/21/18 01/22/18 23:55 23:55 04:00 WBC RBC Hgb Hct MCV MCH MCHC RDW Plt Count MPV Neut % (Auto) Lymph % (Auto) [place] % (Auto) Eos % (Auto) Baso % (Auto) Neut # (Auto) Lymph # (Auto) [place] # (Auto) Eos # (Auto) Baso # (Auto) WBC Differential Differential Comment PT INR APTT Sodium Potassium Chloride Carbon Dioxide Anion Gap BUN Creatinine Estimated GFR Random Glucose Lactic Acid 1.0 Calcium Total Bilirubin AST ALT Alkaline Phosphatase Total Creatine Kinase 327 H CK-MB (CK-2) 3.2 CK-MB (CK-2) % 1.0 Troponin I 0.51 H Total Protein Albumin Lipase Urine Color Yellow Urine Clarity Clear Urine pH 6.0 Ur Specific [place] 1.011 Urine Protein Negative Urine Glucose (UA) Negative Urine Ketones Trace Urine Occult Blood Small H Urine Nitrate Negative Urine Bilirubin Negative Urine Urobilinogen 4 or greater Ur Leukocyte Esterase Negative Urine RBC 1 Urine WBC 2 Urine Mucus Few H Micro UA Comment Culture not ind Urine Culture Comments Culture not ind 01/22/18 06:25 WBC RBC Hgb Hct MCV MCH MCHC RDW Plt Count MPV Neut % (Auto) Lymph % (Auto) [place] % (Auto) Eos % (Auto) Baso % (Auto) Neut # (Auto) Lymph # (Auto) [place] # (Auto) Eos # (Auto) Baso # (Auto) WBC Differential Differential Comment PT INR APTT Sodium Potassium Chloride Carbon Dioxide Anion Gap BUN Creatinine Estimated GFR Random Glucose Lactic Acid Calcium Total Bilirubin AST ALT Alkaline Phosphatase Total Creatine Kinase 317 H CK-MB (CK-2) 3.4 CK-MB (CK-2) % 1.1 Troponin I 0.44 H Total Protein Albumin Lipase Urine Color Urine Clarity Urine pH Ur Specific [place] Urine Protein Urine Glucose (UA) Urine Ketones Urine Occult Blood Urine Nitrate Urine Bilirubin Urine Urobilinogen Ur Leukocyte Esterase Urine RBC Urine WBC Urine Mucus Micro UA Comment Urine Culture Comments - Imaging Impressions Chest X-Ray 01/21/18 23:55 CONCLUSION: No acute cardiopulmonary disease. Abdomen/Pelvis CT 01/22/18 00:00 CONCLUSION: 1. No acute abnormality to explain the patient's pain. 2. Cholelithiasis. 3. Colonic diverticulosis. Caprini VTE Risk Assessment Caprini VTE Risk Assessment: Moderate/High Risk (score >= 2) Caprini Risk Assessment Model: Point Value = 1 Point Value = 2 Point Value = 3 Point Value = 5 Age 41-60 Minor surgery BMI > 25 kg/m2 Swollen legs Varicose veins or History of unexplained or recurrent spontaneous Oral contraceptives or hormone replacement Sepsis (< 1 month) Serious lung disease, including pneumonia (< 1 month) Abnormal pulmonary function Acute myocardial infarction Congestive heart failure (< 1 month) History of inflammatory bowel disease Medical patient at bed rest Age 61-74 Arthroscopic surgery Major open surgery (> 45 min) Laparoscopic surgery (> 45 min) Malignancy Confined to bed (> 72 hours) Immobilizing plaster cast Central venous access Age >= 75 History of VTE Family history of VTE Factor V Leiden Prothrombin [id number] Lupus anticoagulant Anticardiolipin antibodies Elevated serum homocysteine Heparin-induced thrombocytopenia Other congenital or acquired thrombophilia Stroke (< 1 month) Elective arthroplasty Hip, pelvis, or leg fracture Acute spinal cord injury (< 1 month) Prophylaxis Regimen: Total Risk Factor Score Risk Level Prophylaxis Regimen 0-1 Low Early ambulation 2 Moderate Order ONE of the following: *Sequential Compression Device (SCD) *Heparin 5000 units SQ BID 3-4 Higher Order ONE of the following medications: *Heparin 5000 units SQ TID *Enoxaparin/Lovenox 40 mg SQ daily (WT < 150 kg, CrCl > 30 mL/min) *Enoxaparin/Lovenox 30 mg SQ daily (WT < 150 kg, CrCl > 10-29 mL/min) *Enoxaparin/Lovenox 30 mg SQ BID (WT < 150 kg, CrCl > 30 mL/min) AND/OR *Sequential Compression Device (SCD) 5 or more Highest Order ONE of the following medications: *Heparin 5000 units SQ TID (Preferred with Epidurals) *Enoxaparin/Lovenox 40 mg SQ daily (WT < 150 kg, CrCl > 30 mL/min) *Enoxaparin/Lovenox 30 mg SQ daily (WT < 150 kg, CrCl > 10-29 mL/min) *Enoxaparin/Lovenox 30 mg SQ BID (WT < 150 kg, CrCl > 30 mL/min) AND *Sequential Compression Device (SCD) Assessment and Plan - Plan 72-year-old male presenting with Atypical chest pain/epigastric pain + indeterminate trop .44 Hypertension history twelve-lead EKG reviewed sinus rhythm, no acute STTW changes - requested for Lexiscan= cancel - d/w Cardiology Dr. Beyer- will cath him today instead . - Continue on aspirin, continue on heparin drip -Son will bring in home meds to confirm -get lipid panel Epigastric pain - History of peptic ulcer disease. R/O NSAIds induced- on Moibc - - he is not sure cholelithiasis- on imaging study -States he had an EGD done 10 years ago which showed ulcer -Symptoms more of GI- of burning epigastric pain - start PPI -GI work up if cardiac work up negative Hypokalemia - replace with po KCL - recheck today - start NS + KCL - ff BMP Acute Kidney injury- - start gentle hydration- NS - ff BMP post cath Smoker- counselled extensively 1 pm, ADD: list obtained - Omeprazole 20 mg daily, Lisinopril 10 mg daily, anlodipie 10 mg diaym, suimvastatin 20 mg hs, Melioxicam 15 mg daily - d/w Dr. Beyer- cardiac cath unremarkable- - DDimer elevated- get CTA- r/o PE- to be done tomorrow- due to dye load - repeat creatinine improved- - ff BMP post CTA - continue on gentle hydration, . - FF BMP in am
[2018-01-22] MEDS ORDERED: KCL 20 mEq/D5W/NaCl 0.9% Inj 1,000 ML IV.CONT SCH (09:30)
[2018-01-22] MEDS ORDERED: Heparin/NS PF Inj 500 ML ONE ×2 (10:41→10:42)
[2018-01-22] MEDS ORDERED: Heparin 10,000 UNITS/10 ML Vial (for IV use) ONE (10:41)
[2018-01-22] MEDS ORDERED: fentaNYL Citrate Inj 100 MCG/2 ML Ampul ONE (10:41)
--- NOTE | 2018-01-22 11:38 | CATHPROC ---
[employer] HIS Report Study Information Study Number Admission Scheduled Start Study Start [id number] Jan 22 2018 2:55AM 01/22/2018 Jan 22 2018 10:32AM [place] Service Cardiac Pacer/ICD Admit Source Facility Department Emergency department [facility] - [employer] Physician and Clinical Staff Initial MD Beyer, Marcial Sap Fico Architectkevin Cross RN, Gian RecordYoko Cisneros,RT(R) (BS) Scrub Marilyn Mixon ,RT(R) Procedures Performed Procedure Location (Site) Vessel Name Coronary Angiograms LCA Left Coronary Coronary Angiograms RCA Right Coronary L Heart Cath Wire insertion Radial (right) Radial Art. Equipment Time Menu Planner Description Size Mfg Part Number Used/Scraped TRANSDUCER, TRUWAVE [id number] 10:46 DALEY MILLIGAN * Used W/STOCKCOCK *[id number] *[id number] *[id number] 10:46 [employer] BLANKET,WARM AIR CCL * Used *[id number] 10:46 [employer] Talk PACK, CCL CUSTOM * Used *[id number] 10:46 [employer] Talk SUPPORT, ARTERIAL ADULT 45936 *[id number] Used [id number] 10:49 MEDTRONIC JL 3.5 DXTERITY CATHETER FR 5 Used *[id number] 11:16 MEDTRONIC JL 4.0 DXTERITY CATHETER FR 5 Used *[id number] BAND, RADIAL COMPRESSION TR [id number] 11:25 [employer] MEDICAL 24CM Used SHORT 24 *[id number] 10:46 [email or web address] WIRE, EXCHANGE 260CM 3MMJ 260CM Used *[id number] 10:46 NAMIC MANIFOLD, 4 PORT * Used *[id number] 10:46 [employer]COMED OMNIPAQUE, 350 MG, 150ML 150ML [id number] Used SHEATH, FR6 TRANSRADIAL [id number] 10:46 [employer] MEDICAL FR 6 Used SLENDER 10CM *[id number] Equipment Model, Serial, Lot Number and Expiration Data Description Model Number Serial Number Lot Number Expiration Date JL 4.0 DXTERITY CATHETER [id number] 05-09-2020 History: Allergies Allergy Reaction No Known Allergies History: Risk Factors Family History of Hypertension Dyslipidemia Previous MO Previous Heart Failure Premature CAD Yes Yes No No No Prior Valve Prior PCI Prior CABG Surgery No No No Cerebrovascular Peripheral Artery Chronic Lung On Dialysis Diabetes Disease Disease Disease No No No No No History: Stress Tests Stress or Imaging Studies Performed No History: Other Current Smoker Method Packs a Day Years Used Pack Years Yes Cigarettes 1 60 60 Labs Hgb (g/dl) Hct (%) WBC (l/cumm) Platelets (thousands) 11.60-17.00 35.00-51.00 4.00-11.00 150.00-450.00 13.1 39.1 6.6 281 Glucose (mg/dl) BUN (mg/dl) Creatinine (mg/dl) BUN:Creatinine (1:x) 74.00-106.00 7.00-18.00 0.50-1.30 10.00-20.00 110 18 1.3 13.8 Na (meq/l) K (meq/l) 136.00-145.00 3.50-5.10 143 3.1 INR (PTT:PT) 0.90-1.10 1.1 Troponin I (ng/ml) CPK-MB (ng/ML) 0.02-0.05 0.50-3.60 0.44 Not Drawn Medication Medication Total Dose (Bolus/Oral) Medication Total Dosage/Unit 1% XYLOCAINE 1 mL FENTANYL 25 mcg OXYGEN 4 l/min RADIAL COCKTAIL 1 units VERSED 0.5 mg Medications (Bolus/Oral) Medication Time Given Dosage/Unit Administered By Reason OXYGEN 01/22/2018 10:44:33 AM 4 l/min Gian Cross RN 4 l/min OXYGEN given in lab by Gian Cross RN via Nasal. VERSED 01/22/2018 11:04:30 AM 0.5 mg Marcial Beyer 0.5 mg VERSED given in lab by Marcial Beyer in Left Antecubital via Peripheral IV. 1% XYLOCAINE 01/22/2018 11:04:58 AM 1 mL Marcial Beyer 1 mL 1% XYLOCAINE given in lab by Marcial Beyer in Right Radial via Subcutaneous. FENTANYL 01/22/2018 11:05:39 AM 25 mcg Marcial Beyer 25 mcg FENTANYL given in lab by Marcial Beyer via Peripheral IV. Ntg 200mcg Verapamil 2.5mg Heparin RADIAL COCKTAIL 01/22/2018 11:06:22 AM 1 units Marcial Beyer 2000U RADIAL COCKTAIL given in lab by Gian Cross RN via Radial. Using [Solution Name]. Reason: Ntg 200mcg Verapamil 2.5mg Heparin 3500U. Medication (Drip) Medication Time Given Dosage/Unit Concentration/Unit Diluent (ml) Solution IV Solutions 01/22/2018 10:32:25 AM 0 mL (IV) 500 NaCl .9 IV Solutions given in lab by Gian Cross RN in Left Antecubital via Peripheral IV. Pump/Drip Flow = 30 ml/hr using NaCl .9. Initial Case Assessment Cardiovascular HR Rhythm NIBP Chest Pain 71 irr 125/83 0 Edema Present Skin color Skin None Normal Warm Dry Circulatory - Right Pulses Dorsalis Pedis Femoral Radial 2 2 2 Scale (0,1,2,3,4,d) Circulatory - Left Pulses Dorsalis Pedis Femoral Radial 2 2 Scale (0,1,2,3,4,d) Circulatory - Lower Extremities Color Lower Right Color Lower Left Normal Normal Neurological State Oriented to time-place- Alert Moves all extremities person Respiration - General Respiration Rate SpO2 (%) O2 (lpm) (B/min) 20 91 4 Chronological Log Time Study Chronological Log 10:32:04 Patient arrived via Bed. 10:32:05 Patient Name, D.O.B, / Armband Verified By R.N. 10:32:06 Consent signed by the physician and the patient and verified by the [employer] staff. 10:32:06 Pre-op and post- op instructions given; patient acknowledges understanding of instruction s. 10:32:09 Presedation assessment performed by [employer] RN. 10:32:15 Allens test performed on the right radial and ulnar artery. 10:32:19 Patient has been NPO for More than 6Hrs. 10:32:19 Skin Breakdown none per pt 10:32:20 Patient Warmer Placed on the Table. 10:32:22 Sandy Prominences Protected 10:32:24 A # 20 IV was noted in the Antecubital (left). Grade = 0 IV Solutions given in lab by Gian Cross RN in Left Antecubital via Peripheral IV. Pump/Drip F low = 30 ml/hr using NaCl 10:32:25 .9. 10:32:26 History and physical on the chart or being dictated. Assessment: Initial Case, HR=71 BPM, Rhythm=irr, DFRS=781/83 mmhg, Chest Pain=0, Edema=None, Co hardeep=Normal, Skin = Warm, Dry Right Pulses: Inder Ped=2, Femoral=2, Radial=2 Left Pulses: Inder Ped=2, Femoral=2 10:32:27 Lower Right Extremities: Color=Normal Lower Left Extremities: Color=Normal Neurological: State=Alert, Ox3, GARRETT Respiration: Resp=20 B/min, SpO2=91 %, O2=4 lpm Vitals capture started with the following parameters, Patient=Adult, Interval=5 min, Initial Pr njlwse=460 mmHg, 10:42:40 Deflation Rate=5 mmHg, Cuff placed on Left Leg 10:43:21 HR=71 bpm, LJDG=868/83 mmhg, SpO2=89.0 %, Pain=0, [place]=10, Horne=2 10:43:48 Reference ECG taken 10:44:33 4 l/min OXYGEN given in lab by Gian Cross RN via Nasal. 10:45:11 Right Radial and groin(s) prepped with 2% chlorhexidine, and draped after a 3 min. waiting time. 10:48:16 HR=78 bpm, HFPM=432/80 mmhg, SpO2=92.0 %, Pain=0, [place]=10, Horne=2 10:50:15 MD paged 10:53:13 HR=75 bpm, MSTX=831/79 mmhg, SpO2=91.0 %, Resp=18 B/min, Pain=0, [place]=10, Horne=2 10:53:28 Pressure channel 1 zeroed. 10:56:49 MD responded 10:58:14 HR=77 bpm, WGWU=830/80 mmhg, SpO2=92.0 %, Resp=20 B/min, Pain=0, Chico=10, Horne=2 10:59:48 MD arrived 11:03:13 HR=76 bpm, POXL=925/85 mmhg, Resp=28 B/min, Pain=0, Chico=10, Horne=2 Time Out. Correct patient, correct procedure, correct physician, labs, allergies, and equipment verified with agriculture laborer 11:04:08 team present. Fire risk assesment completed (see hard stop sheet for coding). Time Out Conc urred by MD and individual staff in procedure. 11:04:18 Case Start 11:04:30 0.5 mg VERSED given in lab by Marcial Beyer in Left Antecubital via Peripheral IV. 11:04:58 1 mL 1% XYLOCAINE given in lab by Marcial Beyer in Right Radial via Subcutaneous. 11:05:39 25 mcg FENTANYL given in lab by Marcial Beyer via Peripheral IV. 11:05:48 Access site was Right Radial Artery . A SHEATH, FR6 TRANSRADIAL SLENDER 10CM FR 6 was advanced into the Radial (right) using the Perc utaneous 11:06:14 technique. RADIAL COCKTAIL given in lab by Gian Cross RN via Radial. Using [Solution Name]. Reason: Ntg 200mcg Verapamil 11:06:22 2.5mg Heparin 3500U. A JR 4.0 INFINITI CATHETER FR 5 was advanced over a wire. OMNIPAQUE, 350 MG, 150ML 150ML was us ed for 11:07:03 injections. 11:08:19 HR=74 bpm, BWPI=961/71 mmhg, SpO2=92.0 %, Resp=23 B/min, Pain=0, [place]=10, Horne=2 Recorded Pressure: LV, HR=76, Condition=Condition 1 11:09:50 (Left Ventricle) LV 99/-8/1 Recorded Pressure: LV, Ao, HR=77, Condition=Condition 1 11:09:59 (Left Ventricle) LV 100/-7/1, (Aorta) Ao 93/62/77 11:11:09 The RCA was injected and visualized at various angles. OMNIPAQUE, 350 MG, 150ML 150ML used . Recorded Pressure: Ao, HR=76, Condition=Condition 1 11:11:17 (Aorta) Ao 95/65/79 After removing the current catheter a JL 3.5 DXTERITY CATHETER FR 5 was advanced over a WIRE, E XCHANGE 260CM 11:12:26 3MMJ 260CM. 11:13:13 HR=75 bpm, TZNK=402/73 mmhg, Resp=21 B/min, Pain=0, [place]=10, Horne=2 After removing the current catheter a JL 4.0 DXTERITY CATHETER FR 5 was advanced over a WIRE, EXCHANGE 260CM 11:16:03 3MMJ 260CM. 11:18:13 HR=74 bpm, UUGX=769/78 mmhg, SpO2=93.0 %, Resp=22 B/min, Pain=0, [place]=10, Horne=2 After removing the current catheter a JL 4.5 INFINITI CATHETER FR 5 was advanced over a WIRE, EXCHANGE 260CM 11:19:29 3MMJ 260CM. 11:23:16 HR=72 bpm, MVHK=996/77 mmhg, SpO2=93.0 %, Resp=25 B/min, Pain=0, [place]=10, Horne=2 11:23:22 The LCA was injected and visualized at various angles. OMNIPAQUE, 350 MG, 150ML 150ML use d. 11:24:09 A WIRE, EXCHANGE 260CM 3MMJ 260CM was inserted via Radial (right). 11:24:18 Catheter was removed 11:24:19 Wire removed 11:25:38 Case End (Physician broke scrub) 11:25:51 Catheter(s) removed without difficulty Radial Compression Device Used. 9 mLs of air placed in BAND, RADIAL COMPRESSION TR SHORT 24 24 CM. Affected 11:26:04 hand 91 % O2 saturation. 11:26:26 No case complications noted. 11:26:37 Bedside Report will be given. 11:26:39 A Left Heart Cath was performed. 11:28:15 HR=67 bpm, WAPG=825/78 mmhg, SpO2=94.0 %, Resp=12 B/min, Pain=0, [place]=10, Horne=2 11:32:15 Vitals capture stopped. 11:36:25 Patient moved to carrier clinic End Study - Contrast Media Used In Study Contrast Total Opened (mL) Total Used (mL) Total Wasted (mL) Omnipaque 60 60 0 End Study - Maximum Contrast Load Max Contrast Load (mL) 323.4 End Study - Radiation Exposure Fluoro Time (minutes) 6.0 End Study - Sheaths Sheaths Pulled By Sheath Hold Time (min) Marilyn Mixon End Study - Patient Disposition Complications Transferred To Interventional Outcome No Telemetry Bed No attempt made
[2018-01-22] MEDS ORDERED: Heparin 10,000 UNITS/10 ML Vial (for IV use) IV.PUSH PRN (11:40)
--- NOTE | 2018-01-22 13:03 | MB ---
cc: Marcial Beyer DO DATE: 01/22/2018 REASON FOR CONSULTATION: Elevated troponin. HISTORY OF PRESENT ILLNESS: Mr. Brunner is a pleasant 72-year-old male whom I see in the office and presented to [facility] Room for chest pain/epigastric pain. He states that for the past 2 weeks he has been having epigastric burning that lasts 2-3 hours at a time, but is not associated with nausea or vomiting. He is unsure if it is related to food. He states that it usually lasts for a few hours. Last night it started radiating to the left side of his chest along his ribs and it hurt more when he coughed. Because of this he came to the emergency room. While here he was found to have a positive troponin and so I was asked to see him. On seeing him, he is currently hemodynamically stable without chest pain or shortness of breath. PAST MEDICAL HISTORY: 1. Hypertension. 2. Hyperlipidemia. 3. Tobacco abuse. PAST SURGICAL HISTORY: 1. Total left knee replacement. 2. Total right knee replacement. ALLERGIES: NO KNOWN DRUG ALLERGIES. MEDICATIONS: 1. Omeprazole 20 mg daily. 2. Methocarbamol 750 mg 4 times a day. 3. Meloxicam 15 mg daily. 4. Losartan/hydrochlorothiazide 100/25 daily. 5. Lisinopril 5 mg daily. 6. Norvasc 5 mg daily. 7. Tramadol 50 mg every 4-6 hours as needed. FAMILY HISTORY: Denies premature coronary artery disease or sudden cardiac within the family. SOCIAL HISTORY: The patient smokes a pack of cigarettes daily. Denies alcohol or drug abuse. REVIEW OF SYSTEMS: Fourteen systems were reviewed, including osteopathic. Pertinent positives and negatives above, otherwise negative. PHYSICAL EXAMINATION: VITAL SIGNS: Temperature 98.2, heart rate 76, blood pressure 122/77, respirations 18, pulse oximetry 92% on 3 liters. GENERAL: The patient appears well, in no acute distress, alert, awake and oriented x3. HEENT: Extraocular muscles intact. Mucous membranes moist. NECK: Supple. No JVD at 45 degrees. No carotid bruits heard bilaterally. Carotid upstroke is brisk in nature. HEART: Regular rate and rhythm. Positive first and second heart sounds with no murmurs, gallops, or rubs. LUNGS: Clear to auscultation bilaterally. No wheezes, rales, or rhonchi. ABDOMEN: Soft, nontender, nondistended. No organomegaly noted. EXTREMITIES: Show no clubbing, cyanosis, or edema. Femoral and distal pulses are intact bilaterally. NEUROLOGIC: No focal deficits. SKIN: Warm, dry and intact. OSTEOPATHIC: No kyphoscoliosis, lordosis, or paraspinal tender points. LABORATORY DATA: Hemoglobin 13.1, hematocrit 39.1, platelets 281. Potassium 3.1, BUN 18, creatinine 1.36. Troponin 0.51. DIAGNOSTIC DATA: Electrocardiogram (01/22/2018 at 0629), sinus rhythm, voltage criteria for LVH, nonspecific ST-T wave changes. IMPRESSION: 1. Atypical chest pain, possible epigastric in nature. 2. Elevated troponin. 3. Hypertension. 4. Hyperlipidemia. 5. Acute kidney injury on chronic kidney disease. 6. Tobacco abuse. RECOMMENDATIONS: 1. Mr. Brunner presented with epigastric pain, but does have an elevated troponin. This may be atypical angina and because of this we recommended cardiac catheterization. 2. Risks, benefits, and alternatives were explained to him and he consented to such. 3. We will check a 2-D echo to look at his overall left ventricular function, cardiac structure, and possible valvulopathies. 4. He has been started on a heparin drip and this will be held on arrival to the shop laborer. 5. I spoke to him for greater than 3 minutes about tobacco cessation. Thank you for allowing me to see him Clayton Brunner. If there are any questions, please do not hesitate to call. Marcial Beyer, [facility]/ , 12:39 PM , 12:50 PM
--- NOTE | 2018-01-22 13:22 | MA ---
cc: Marcial Beyer DO DATE: 01/22/2018 PROCEDURE: Left heart catheterization, coronary angiogram, moderate sedation, 20 minutes. PREPROCEDURE DIAGNOSES: Atypical chest pain, elevated troponin, hypertension, hyperlipidemia, tobacco abuse. POSTPROCEDURE DIAGNOSIS: Mild coronary artery disease. MEDICATIONS: Versed 0.5 mg, fentanyl 25 mcg, nitroglycerin 200 mcg, verapamil 2.5 mg, heparin 3500 units. CONTRAST USED: 60 mL FLUOROSCOPY: 6.0 minutes. MONITORED SEDATION: 20 minutes. FRAILTY SCORE: 3 ESTIMATED BLOOD LOSS: 10 mL PROCEDURAL SUMMARY: Clayton Brunner is a pleasant 72-year-old male who presented to [facility] Emergency Room due to epigastric pain. He was found to have an elevated troponin, and there was a concern for atypical angina. Because of this, he was recommended cardiac catheterization. Risks, benefits and alternatives were explained to him, and he consented to such. He was brought to the lab and prepped in the usual sterile fashion. The right radial artery was accessed using a modified Seldinger technique and placement of a 5-6 [place] slender sheath. This was easily aspirated and flushed. A JR4 was advanced over a J-wire to the ascending aorta and across the aortic valve for measurement of left ventricular pressure. This was pulled back across the aortic valve, showing no significant of aortic stenosis. JR4 was used for selective angiography of the right coronary artery system. This was exchanged out for a JL4.5 which was used for selective angiography of the left coronary artery system. JL4.5 was removed over a J wire. A radial band was placed over the arteriotomy site for hemostasis. The patient left the laboratory worker cardiovascularly stable. FINDINGS: LEFT MAIN: Normal-sized vessel with adequate reflux. There is a 30% lesion at the ostial portion. It bifurcates into an LAD and circumflex. LAD: Moderate large-sized vessel with mild luminal irregularities throughout. It gives off 3 overall small diagonals with no significant disease. LEFT CIRCUMFLEX: Moderate size vessel with no significant disease. It gives off 3 obtuse marginals, with the first one being moderate size and no significant disease. The other 2 were overall small. RCA: Moderate size vessel with a 30% lesion in the mid portion. Distally, it supplies the PDA as well as multiple PLBs with no significant disease. LVEDP: 5. IMPRESSION: 1. Epigastric pain. 2. Elevated troponin. 3. Tobacco abuse. RECOMMENDATIONS: 1. Mr. Brunner presented with epigastric pain, and it was felt that this may be atypical chest pain. Because of his positive troponin, he underwent cardiac catheterization, and during this was found to have mild coronary artery disease. 2. We will check a 2D echo to look at his overall left ventricular function, cardiac structure and possible valvulopathies. 3. Depending on the results of the echo, he may need further workup for a possible pulmonary embolus, although his surgery was quite some time ago, and he has very little risk factors for this. 4. I spoke to him for greater than 3 minutes about tobacco cessation. 5. Further recommendations will be made based on hospital course. Thank you for allowing me to see Clayton Brunner. If there are any questions, please do not hesitate to call. Marcial Beyer DO [facility] , 12:47 PM , 12:58 PM
--- NOTE | 2018-01-22 13:30 | P.CONGI ---
History of Present Illness Consult date: 01/22/18 Consult reason: Epigastric pain Chief complaint: chest pain r/o ACS History of Present Illness: This is a 72-year-old male who came into the hospital for evaluation on 2017 with chest pain and some epigastric burning onset for 2 or 3 hours. Patient stated no nausea vomiting during that time. Patient had initial workup with cardiology with positive troponin and is post heart cath today and is pending 2D echo to rule out PE. Due to patient's epigastric pain and discomfort gastroenterology was consulted to evaluate his GI pain and assist in his plan of care. Currently patient denies any nausea or vomiting denies any obvious GI bleeding. Onset of symptoms include loose stools over the past 5 days no obvious bleeding but patient also notes history of constipation in which he took a colon prep this past week. Patient's loose stools could be related to this colon prep. Patient has no family history of colon cancer and does note EGD approximately 10 years ago showing small gastric ulcers. Current labs show hemoglobin 13.1, PT/INR 1.1, bilirubin and LFTs are either low or low normal. Patient does note a decreased appetite over the past few weeks but no acute weight loss noted. Patient states colonoscopy 3 or 4 years ago for a history of polyps but no follow-up since. Patient is awake a fairly good historian and is currently pending cardiac clearance. CT scan that was performed this admission did show cholelithiasis and diverticulosis. <Radha Oro - Last Filed: 01/22/18 13:41> Review of Systems All other systems reviewed negative except as stated in HPI <Radha Oro - Last Filed: 01/22/18 13:41> PMFSH - History History Provided By: Patient - Medical History Medical History: Medical History (Last Updated 01/22/18 @ 03:35 by Lily Tripp MD) High cholesterol Hypertension Tobacco abuse - Surgical History Surgical History: Surgical History (Last Updated 01/22/18 @ 03:35 by Lily Tripp MD) History of total left knee replacement (TKR) History of total right knee replacement (TKR) - Tobacco History Second Hand Smoke Exposure: Yes Tobacco Use In Past 30 Days: Yes Smoking Status: Current every day smoker Tobacco Type: Cigarettes - Alcohol History How Often Do You Have a Drink Containing Alcohol: Monthly or less - Substance Use History Substance History: No History of Abuse - Travel History Recent Travel in the [place] Within the Last 8 Weeks: No Recent Travel Out of the Country Within the Last 8 Weeks: No - Immunization History Tetanus Immunization: <5 Years Hx Influenza Vaccine This Season: Yes <Radha Oro - Last Filed: 01/22/18 13:41> - Medical History Medical History: Medical History (Last Updated 01/22/18 @ 03:35 by Lily Tripp MD) High cholesterol Hypertension Tobacco abuse - Surgical History Surgical History: Surgical History (Last Updated 01/22/18 @ 03:35 by Lily Tripp MD) History of total left knee replacement (TKR) History of total right knee replacement (TKR) <Bryan Jewell - Last Filed: 01/22/18 15:46> Medications and Allergies Active Medications: Active Medications Acetaminophen (Tylenol) 500 mg PO Q4H PRN PRN Reason: HEADACHE Potassium Chloride/Dextrose/Sod Cl (D5w/Ns + Kcl 20 Meq Inj) 1,000 mls @ 60 mls /hr IV.CONT .[id number] [facility] Last Admin: 01/22/18 09:59 Dose: 60 mls/hr Pantoprazole Sodium (Protonix) 40 mg PO DAILY [facility] Last Admin: 01/22/18 09:59 Dose: 40 mg Sodium Chloride (Ns Flush) 2 ml IV.FLUSH BID [facility] Last Admin: 01/22/18 09:59 Dose: 2 ml Sodium Chloride (Ns Flush) 2 ml IV.FLUSH PRN PRN PRN Reason: FLUSH AFTER USING IV ACCESS Sodium Chloride (Ns Flush) 2 ml IV.FLUSH BID [facility] Sodium Chloride (Ns Flush) 2 ml IV.FLUSH PRN PRN PRN Reason: FLUSH AFTER USING IV ACCESS <Radha Oro - Last Filed: 01/22/18 13:41> Active Medications: Active Medications Acetaminophen (Tylenol) 500 mg PO Q4H PRN PRN Reason: HEADACHE Potassium Chloride 30 meq/ (Dextrose/Sodium Chloride) 1,015 mls @ 60 mls/hr IV.CONT .[id number] [facility] Pantoprazole Sodium (Protonix) 40 mg PO DAILY [facility] Last Admin: 01/22/18 09:59 Dose: 40 mg Polyethylene Glycol/Electrolytes (Colyte Liq) 4,000 ml PO ONCE ONE Stop: 01/23/18 16:01 Potassium Chloride (Klor-Con 10) 30 meq PO ONCE ONE Stop: 01/22/18 14:59 Sodium Chloride (Ns Flush) 2 ml IV.FLUSH BID [facility] Last Admin: 01/22/18 09:59 Dose: 2 ml Sodium Chloride (Ns Flush) 2 ml IV.FLUSH PRN PRN PRN Reason: FLUSH AFTER USING IV ACCESS Sodium Chloride (Ns Flush) 2 ml IV.FLUSH BID [facility] Sodium Chloride (Ns Flush) 2 ml IV.FLUSH PRN PRN PRN Reason: FLUSH AFTER USING IV ACCESS <Bryan Jewell E - Last Filed: 01/22/18 15:46> Allergies Allergy/AdvReac Type Severity Reaction Status Date / Time No Known Allergies Allergy Unverified 01/21/18 23:12 Home Medications Medication Instructions Recorded Confirmed Type amlodipine 10 mg PO DAILY 01/22/18 01/22/18 History lisinopril 10 mg PO DAILY 01/22/18 01/22/18 History losartan-hydrochlorothiazide 1 tab PO DAILY 01/22/18 01/22/18 History meloxicam 15 mg PO DAILY 01/22/18 01/22/18 History methocarbamol 750 mg PO QID 01/22/18 01/22/18 History omeprazole 20 mg PO DAILY 01/22/18 01/22/18 History tramadol 50 mg PO Q4-6H PRN 01/22/18 01/22/18 History Exam Vital signs: Vital Signs 01/21/18 23:12 01/21/18 23:15 01/22/18 01:12 Temperature 97.5 F L Pulse Rate 89 82 Respiratory Rate 22 20 20 Blood Pressure 134/73 136/72 Pulse Oximetry 90 L 98 01/22/18 02:30 01/22/18 02:36 01/22/18 03:08 Temperature Pulse Rate 90 88 Respiratory Rate 18 21 20 Blood Pressure 136/65 Pulse Oximetry 96 01/22/18 03:43 01/22/18 05:04 01/22/18 06:00 Temperature Pulse Rate 79 72 Respiratory Rate 16 20 Blood Pressure 101/59 L 113/71 Pulse Oximetry 93 L 90 L 01/22/18 07:01 01/22/18 08:00 01/22/18 09:00 Temperature 97.7 F 98.2 F Pulse Rate 64 76 78 Respiratory Rate 18 18 Blood Pressure 132/85 122/77 Pulse Oximetry 94 L 92 L 01/22/18 11:40 01/22/18 12:25 01/22/18 12:55 Temperature 98.0 F 98.0 F 98.0 F Pulse Rate 70 70 63 Respiratory Rate 20 20 20 Blood Pressure 123/86 123/73 132/89 Pulse Oximetry 91 L 91 L 91 L Intake & Output 01/21/18 01/22/18 01/22/18 18:59 06:59 18:59 Intake Total 1053 / 1053 Balance 1053 / 1053 Weight 83.915 kg Intake: IV 1053 / 1053 Heparin/D5W 25,000 U/250 mL 25, 53 / 53 000 unit In 250 ml @ Per Protocol 10 mls/hr IV.CONT TITRATE PRN Rx#:[id number] NS Inj 1,000 ML @ 125 mls/hr IV 1000 / 1000 .CONT .Q8H [facility] Rx#:[id number] - Constitutional no acute distress - Routine HEENT Exam Head: Present: normocephalic ENT: Present: mucous membranes moist - Routine Respiratory Exam Present: accessory muscle use (Mild diminished breath sounds but no obvious wheezing or rhonchi) - Routine Cardiovascular Exam Present: S1, S2 (No obvious murmur) - Routine Abdominal Exam Present: soft (Round, active bowel sounds, mild gastric discomfort) - Routine Skin Exam Present: intact - Routine Neurological Exam Present: alert <Radha Oro - Last Filed: 01/22/18 13:41> Vital signs: Vital Signs 01/21/18 23:12 01/21/18 23:15 01/22/18 01:12 Temperature 97.5 F L Pulse Rate 89 82 Respiratory Rate 22 20 20 Blood Pressure 134/73 136/72 Pulse Oximetry 90 L 98 01/22/18 02:30 01/22/18 02:36 01/22/18 03:08 Temperature Pulse Rate 90 88 Respiratory Rate 18 21 20 Blood Pressure 136/65 Pulse Oximetry 96 01/22/18 03:43 01/22/18 05:04 01/22/18 06:00 Temperature Pulse Rate 79 72 Respiratory Rate 16 20 Blood Pressure 101/59 L 113/71 Pulse Oximetry 93 L 90 L 08/20/18 07:01 01/22/18 08:00 01/22/18 09:00 Temperature 97.7 F 98.2 F Pulse Rate 64 76 78 Respiratory Rate 18 18 Blood Pressure 132/85 122/77 Pulse Oximetry 94 L 92 L 01/22/18 11:40 01/22/18 12:25 01/22/18 12:55 Temperature 98.0 F 98.0 F 98.0 F Pulse Rate 70 70 63 Respiratory Rate 20 20 20 Blood Pressure 123/86 123/73 132/89 Pulse Oximetry 91 L 91 L 91 L Intake & Output 01/21/18 01/22/18 01/22/18 18:59 06:59 18:59 Intake Total 1353 / 1353 Balance 1353 / 1353 Weight 83.915 kg Intake: IV 1353 / 1353 Heparin/D5W 25,000 U/250 mL 25, 53 / 53 000 unit In 250 ml @ Per Protocol 10 mls/hr IV.CONT TITRATE PRN Rx#:[id number] D5W/NS + KCL 20 mEq Inj 1,000 300 / 300 ML @ 60 mls/hr IV.CONT .[id number] [facility] Rx#:[id number] NS Inj 1,000 ML @ 125 mls/hr IV 1000 / 1000 .CONT .Q8H [facility] Rx#:[id number] <Bryan Jewell E - Last Filed: 01/22/18 15:46> Results - Labs CBC & Chem 7: 01/21/18 23:55 01/21/18 23:55 Labs: Laboratory Results - last 24 hr 01/21/18 01/21/18 01/21/18 23:55 23:55 23:55 WBC 6.6 RBC 4.83 Hgb 13.1 Hct 39.1 MCV 80.9 MCH 27.1 MCHC 33.5 RDW 12.9 Plt Count 281 MPV 8.4 Neut % (Auto) 70.3 H Lymph % (Auto) 18.6 Powell % (Auto) 7.6 Eos % (Auto) 3.1 Baso % (Auto) 0.4 Neut # (Auto) 4.6 Lymph # (Auto) 1.2 Powell # (Auto) 0.5 Eos # (Auto) 0.2 Baso # (Auto) 0.0 WBC Differential . Differential Comment Auto diff final PT 10.7 INR 1.1 APTT 28.0 Sodium 143 Potassium 3.1 L Chloride 110 H Carbon Dioxide 24.6 Anion Gap 8 BUN 18 Creatinine 1.36 H Estimated GFR 63 L Random Glucose 110 H Lactic Acid Calcium 8.7 Total Bilirubin 0.5 AST 13 L ALT 15 Alkaline Phosphatase 133 H Total Creatine Kinase CK-MB (CK-2) CK-MB (CK-2) % Troponin I 0.05 Total Protein 8.5 H Albumin 4.0 Lipase 237 Urine Color Urine Clarity Urine pH Ur Specific [place] Urine Protein Urine Glucose (UA) Urine Ketones Urine Occult Blood Urine Nitrate Urine Bilirubin Urine Urobilinogen Ur Leukocyte Esterase Urine RBC Urine WBC Urine Mucus Micro UA Comment Urine Culture Comments 01/21/18 01/21/18 01/22/18 23:55 23:55 04:00 WBC RBC Hgb Hct MCV MCH MCHC RDW Plt Count MPV Neut % (Auto) Lymph % (Auto) Powell % (Auto) Eos % (Auto) Baso % (Auto) Neut # (Auto) Lymph # (Auto) Powell # (Auto) Eos # (Auto) Baso # (Auto) WBC Differential Differential Comment PT INR APTT Sodium Potassium Chloride Carbon Dioxide Anion Gap BUN Creatinine Estimated GFR Random Glucose Lactic Acid 1.0 Calcium Total Bilirubin AST ALT Alkaline Phosphatase Total Creatine Kinase 327 H CK-MB (CK-2) 3.2 CK-MB (CK-2) % 1.0 Troponin I 0.51 H Total Protein Albumin Lipase Urine Color Yellow Urine Clarity Clear Urine pH 6.0 Ur Specific [place] 1.011 Urine Protein Negative Urine Glucose (UA) Negative Urine Ketones Trace Urine Occult Blood Small H Urine Nitrate Negative Urine Bilirubin Negative Urine Urobilinogen 4 or greater Ur Leukocyte Esterase Negative Urine RBC 1 Urine WBC 2 Urine Mucus Few H Micro UA Comment Culture not ind Urine Culture Comments Culture not ind 01/22/18 06:25 WBC RBC Hgb Hct MCV MCH MCHC RDW Plt Count MPV Neut % (Auto) Lymph % (Auto) [place] % (Auto) Eos % (Auto) Baso % (Auto) Neut # (Auto) Lymph # (Auto) Powell # (Auto) Eos # (Auto) Baso # (Auto) WBC Differential Differential Comment PT INR APTT Sodium Potassium Chloride Carbon Dioxide Anion Gap BUN Creatinine Estimated GFR Random Glucose Lactic Acid Calcium Total Bilirubin AST ALT Alkaline Phosphatase Total Creatine Kinase 317 H CK-MB (CK-2) 3.4 CK-MB (CK-2) % 1.1 Troponin I 0.44 H Total Protein Albumin Lipase Urine Color Urine Clarity Urine pH Ur Specific [place] Urine Protein Urine Glucose (UA) Urine Ketones Urine Occult Blood Urine Nitrate Urine Bilirubin Urine Urobilinogen Ur Leukocyte Esterase Urine RBC Urine WBC Urine Mucus Micro UA Comment Urine Culture Comments - Imaging Impressions Chest X-Ray 01/21/18 23:55 CONCLUSION: No acute cardiopulmonary disease. Abdomen/Pelvis CT 01/22/18 00:00 CONCLUSION: 1. No acute abnormality to explain the patient's pain. 2. Cholelithiasis. 3. Colonic diverticulosis. <Radha Oro - Last Filed: 01/22/18 13:41> - Labs CBC & Chem 7: 01/22/18 13:38 01/22/18 13:38 Labs: Laboratory Results - last 24 hr 01/21/18 01/21/18 01/21/18 23:55 23:55 23:55 WBC 6.6 RBC 4.83 Hgb 13.1 Hct 39.1 MCV 80.9 MCH 27.1 MCHC 33.5 RDW 12.9 Plt Count 281 MPV 8.4 Neut % (Auto) 70.3 H Lymph % (Auto) 18.6 Powell % (Auto) 7.6 Eos % (Auto) 3.1 Baso % (Auto) 0.4 Neut # (Auto) 4.6 Lymph # (Auto) 1.2 Powell # (Auto) 0.5 Eos # (Auto) 0.2 Baso # (Auto) 0.0 WBC Differential . Differential Comment Auto diff final PT 10.7 INR 1.1 APTT 28.0 D-Dimer Quant (PE/DVT) Sodium 143 Potassium 3.1 L Chloride 110 H Carbon Dioxide 24.6 Anion Gap 8 BUN 18 Creatinine 1.36 H Estimated GFR 63 L Random Glucose 110 H Lactic Acid Calcium 8.7 Total Bilirubin 0.5 AST 13 L ALT 15 Alkaline Phosphatase 133 H Total Creatine Kinase CK-MB (CK-2) CK-MB (CK-2) % Troponin I 0.05 Total Protein 8.5 H Albumin 4.0 Triglycerides Cholesterol LDL Cholesterol, Calc HDL Cholesterol Cholesterol/HDL Ratio Lipase 237 Urine Color Urine Clarity Urine pH Ur Specific [place] Urine Protein Urine Glucose (UA) Urine Ketones Urine Occult Blood Urine Nitrate Urine Bilirubin Urine Urobilinogen Ur Leukocyte Esterase Urine RBC Urine WBC Urine Mucus Micro UA Comment Urine Culture Comments 01/21/18 01/21/18 01/22/18 23:55 23:55 04:00 WBC RBC Hgb Hct MCV MCH MCHC RDW Plt Count MPV Neut % (Auto) Lymph % (Auto) [place] % (Auto) Eos % (Auto) Baso % (Auto) Neut # (Auto) Lymph # (Auto) [place] # (Auto) Eos # (Auto) Baso # (Auto) WBC Differential Differential Comment PT INR APTT D-Dimer Quant (PE/DVT) Sodium Potassium Chloride Carbon Dioxide Anion Gap BUN Creatinine Estimated GFR Random Glucose Lactic Acid 1.0 Calcium Total Bilirubin AST ALT Alkaline Phosphatase Total Creatine Kinase 327 H CK-MB (CK-2) 3.2 CK-MB (CK-2) % 1.0 Troponin I 0.51 H Total Protein Albumin Triglycerides Cholesterol LDL Cholesterol, Calc HDL Cholesterol Cholesterol/HDL Ratio Lipase Urine Color Yellow Urine Clarity Clear Urine pH 6.0 Ur Specific [place] 1.011 Urine Protein Negative Urine Glucose (UA) Negative Urine Ketones Trace Urine Occult Blood Small H Urine Nitrate Negative Urine Bilirubin Negative Urine Urobilinogen 4 or greater Ur Leukocyte Esterase Negative Urine RBC 1 Urine WBC 2 Urine Mucus Few H Micro UA Comment Culture not ind Urine Culture Comments Culture not ind 01/22/18 01/22/18 01/22/18 06:25 13:38 13:38 WBC 5.6 RBC 4.38 L Hgb 11.9 L Hct 36.0 L MCV 82.3 MCH 27.1 MCHC 32.9 RDW 12.5 Plt Count 261 MPV 8.6 Neut % (Auto) Lymph % (Auto) [place] % (Auto) Eos % (Auto) Baso % (Auto) Neut # (Auto) Lymph # (Auto) [place] # (Auto) Eos # (Auto) Baso # (Auto) WBC Differential Differential Comment PT 11.2 INR 1.1 APTT 35.2 H D D-Dimer Quant (PE/DVT) Sodium Potassium Chloride Carbon Dioxide Anion Gap BUN Creatinine Estimated GFR Random Glucose Lactic Acid Calcium Total Bilirubin AST ALT Alkaline Phosphatase Total Creatine Kinase 317 H CK-MB (CK-2) 3.4 CK-MB (CK-2) % 1.1 Troponin I 0.44 H Total Protein Albumin Triglycerides Cholesterol LDL Cholesterol, Calc HDL Cholesterol Cholesterol/HDL Ratio Lipase Urine Color Urine Clarity Urine pH Ur Specific [place] Urine Protein Urine Glucose (UA) Urine Ketones Urine Occult Blood Urine Nitrate Urine Bilirubin Urine Urobilinogen Ur Leukocyte Esterase Urine RBC Urine WBC Urine Mucus Micro UA Comment Urine Culture Comments 01/22/18 01/22/18 01/22/18 13:38 13:38 13:38 WBC RBC Hgb Hct MCV MCH MCHC RDW Plt Count MPV Neut % (Auto) Lymph % (Auto) [place] % (Auto) Eos % (Auto) Baso % (Auto) Neut # (Auto) Lymph # (Auto) [place] # (Auto) Eos # (Auto) Baso # (Auto) WBC Differential Differential Comment PT INR APTT D-Dimer Quant (PE/DVT) 5.15 H Sodium 144 Potassium 3.0 L Chloride 113 H Carbon Dioxide 24.4 Anion Gap 7 BUN 15 Creatinine 1.07 Estimated GFR 83 L Random Glucose 87 Lactic Acid Calcium 8.4 L Total Bilirubin AST ALT Alkaline Phosphatase Total Creatine Kinase CK-MB (CK-2) CK-MB (CK-2) % Troponin I Total Protein Albumin Triglycerides 107 Cholesterol 142 LDL Cholesterol, Calc 90 HDL Cholesterol 31.0 L Cholesterol/HDL Ratio 4.58 Lipase Urine Color Urine Clarity Urine pH Ur Specific [place] Urine Protein Urine Glucose (UA) Urine Ketones Urine Occult Blood Urine Nitrate Urine Bilirubin Urine Urobilinogen Ur Leukocyte Esterase Urine RBC Urine WBC Urine Mucus Micro UA Comment Urine Culture Comments - Imaging Impressions Chest X-Ray 01/21/18 23:55 CONCLUSION: No acute cardiopulmonary disease. Abdomen/Pelvis CT 01/22/18 00:00 CONCLUSION: 1. No acute abnormality to explain the patient's pain. 2. Cholelithiasis. 3. Colonic diverticulosis. <Bryan Jewell E - Last Filed: 01/22/18 15:46> Assessment and Plan (1) Epigastric abdominal pain Status: Acute Code(s): R10.13 - Epigastric pain (2) Stomach discomfort Status: Acute Code(s): R10.9 - Unspecified abdominal pain - Plan Epigastric pain described as a burning sensation over the past month but worsened over the past 2-3 hours before admission. Patient initially had mild increased troponin and cardiac workup was initiated. Patient is post heart cath today and is pending 2D echo to rule out PE. Cardiac workup is still in process. History of constipation in which patient took: Prepped this past week, but notes loose stools for the past 5 days. This could be related to colon prep versus IBS. EGD done approximately 10 years ago with a history of small gastric ulcers Colonoscopy 3-4 years ago with history of polyp CT scan performed this admission shows cholelithiasis and diverticulosis. Labs show hemoglobin 13.1. PT/INR 1.1 and bilirubin and LFTs normal range Plan Diet per attending Cardiac workup in process. Once clearance is given patient will need EGD and colonoscopy. PPI Bowel regimen Zofran Monitor labs Further recommendations to follow Patient was seen per Dr. Jewell and myself, note was written on his behalf <Radha Oro - Last Filed: 01/22/18 13:41> (1) Epigastric abdominal pain Status: Acute Code(s): R10.13 - Epigastric pain (2) Stomach discomfort Status: Acute Code(s): R10.9 - Unspecified abdominal pain - Attending Attestation Patient seen and examined Agree with above Continue with current supportive care Monitor labs Plan on endoscopy once cardiopulmonary issues have been resolved <Bryan Jewell - Last Filed: 01/22/18 15:46>
[2018-01-22 14:11] LABS: Hemoglobin 11.9 gm/dL (13.0-17.0); Mean Corpuscular HGB Conc 32.9 % (32.0-36.0); Mean Corpuscular Hemoglobin 27.1 pg (27.0-34.0); Mean Corpuscular Volume 82.3 fL (80.0-100.0); Mean Platelet Volume 8.6 fL (7.0-11.0); Platelet Count 261 th/mm3 (150-450); Red Blood Count 4.38 mil/mm3 (4.50-5.90); Red Cell Distribution Width 12.5 % (11.6-17.2); White Blood Count 5.6 th/mm3 (4.0-11.0)
[2018-01-22 14:22] LABS: Activated Partial Thrombo Time 35.2 sec (24.3-30.1); INR 1.1 Ratio; Prothrombin Time 11.2 sec (9.8-11.6)
[2018-01-22 14:29] LABS: Calcium 8.4 mg/dL (8.5-10.1); Carbon Dioxide 24.4 meq/L (21.0-32.0)
[2018-01-22 14:32] LABS: Chol/HDL Ratio 4.58 Ratio
--- NOTE | 2018-01-22 16:10 | ECHRPT ---
Indication: CHEST PAIN CONCLUSIONS Normal left ventricular size. Wall thickness is normal. The left ventricular systolic function is normal with an estimated ejection fraction in the range of 55-60%. The left atrial size is mildly dilated. Aortic valve sclerosis is present. Mild mitral regurgitation. There is mild tricuspid valve regurgitation. The estimated pulmonary arterial pressure is 74 mmHg. There is estimated severe pulmonary hypertension present ( > 70 mmHg). BP: / HR: Rhythm: Sinus MEASUREMENTS (Male / Female) Normal Values Technical Quality:Fair 2D ECHO LV Diastolic Diameter PLAX 4.5 cm 4.2 - 5.9 / 3.9 - 5.3 cm LV Systolic Diameter PLAX 3.3 cm IVS Diastolic Thickness 1.0 cm 0.6 - 1.0 / 0.6 - 0.9 cm LVPW Diastolic Thickness 1.0 cm 0.6 - 1.0 / 0.6 - 0.9 cm LV Relative Wall Thickness 0.4 RV Internal Dim ED PLAX 3.3 cm LVOT Diameter 2.4 cm Aortic Root Diameter 3.5 cm LA Systolic Diameter LX 4.2 cm 3.0 - 4.0 / 2.7 - 3.8 cm M-MODE AV Cusp Separation MM 2.2 cm DOPPLER AV Peak Velocity 147.0 cm/s AV Peak Gradient 8.6 mmHg AV Mean Gradient 5.0 mmHg AV Velocity Time Integral 25.6 cm LVOT Peak Velocity 92.5 cm/s LVOT Peak Gradient 3.4 mmHg LVOT Velocity Time Integral 17.5 cm AV Area Cont Eq vti 3.1 cm AV Area Cont Eq pk 2.8 cm Mitral E Point Velocity 61.2 cm/s Mitral A Point Velocity 70.6 cm/s Mitral E to A Ratio 0.9 LV E' Lateral Velocity 6.2 cm/s Mitral E to LV E' Lateral Ratio 9.8 LV E' Septal Velocity 5.5 cm/s Mitral E to LV E' Septal Ratio 11.2 TR Peak Velocity 400.0 cm/s TR Peak Gradient 64.0 mmHg Right Atrial Pressure 10.0 mmHg Pulmonary Artery Systolic Pressu 74.0 mmHg Right Ventricular Systolic Press 74.0 mmHg PV Peak Velocity 40.6 cm/s PV Peak Gradient 0.7 mmHg FINDINGS LEFT VENTRICLE Normal left ventricular size. Wall thickness is normal. The left ventricular systolic function is normal with an estimated ejection fraction in the range of 55-60%. RIGHT VENTRICLE Normal right ventricular size and systolic function. LEFT ATRIUM The left atrial size is mildly dilated. RIGHT ATRIUM The right atrial size is normal. ATRIAL SEPTUM No atrial level shunt is demonstrated by color flow Doppler interrogation. AORTA The aortic root and proximal ascending aorta are normal in size on limited imaging. MITRAL VALVE Mild mitral valve regurgitation. AORTIC VALVE Trileaflet aortic valve. Aortic valve sclerosis is present. TRICUSPID VALVE There is mild tricuspid valve regurgitation. The estimated pulmonary arterial pressure is 74 mmHg. There is estimated severe pulmonary hypertension present ( > 70 mmHg). PULMONARY VALVE The pulmonary valve is not well visualized. VESSELS The inferior vena cava was not well visualized. PERICARDIUM No pericardial effusion. Quintin Hou MD, FACC (Electronically Signed) Final Date:22 January 2018 16:10
--- NOTE | 2018-01-22 17:25 | ECG ---
Date Performed: 01/22/2018 Time Performed: 03:58:02 PTAGE: 72 years EKG: Sinus rhythm WITH OCCASIONAL SUPRAVENTRICULAR PREMATURE COMPLEXES VOLTAGE CRITERIA FOR LVH NONSPECIFIC T-WAVE ABN ORMALITY ABNORMAL ECG PREVIOUS TRACING : 01/21/2018 23.46 Since the previous tracing, no significant change noted DOCTOR: Roque Figueroa Interpretating Date/Time 01/22/2018 17:24:53
--- NOTE | 2018-01-22 17:25 | ECG ---
Date Performed: 01/21/2018 Time Performed: 23:46:49 PTAGE: 72 years EKG: Sinus rhythm WITH OCCASIONAL SUPRAVENTRICULAR PREMATURE COMPLEXES VOLTAGE CRITERIA FOR LVH NONSPECIFIC T-WAVE ABN ORMALITY ABNORMAL ECG PREVIOUS TRACING : 12/22/2016 09.23 Since the previous tracing, no significant change noted DOCTOR: Roque Figueroa Interpretating Date/Time 01/22/2018 17:24:45
--- NOTE | 2018-01-22 17:25 | ECG ---
Date Performed: 01/22/2018 Time Performed: 06:29:08 PTAGE: 72 years EKG: Sinus rhythm WITH OCCASIONAL SUPRAVENTRICULAR PREMATURE COMPLEXES MODERATE VOLTAGE CRITERIA FOR LVH, CONSIDER NOR MAL VARIANT NONSPECIFIC T-WAVE ABNORMALITY BORDERLINE ECG PREVIOUS TRACING : 01/22/2018 @03.58 DOCTOR: Roque Figueroa Interpretating Date/Time 01/22/2018 17:25:27
[2018-01-22] MEDS: Potassium Chloride Inj 30 MEQ in Dextrose 5%/NaCl 0.9% Inj 1,000 ML IV.CONT SCH (17:48)
[2018-01-23 08:38] LABS: Calcium 8.4 mg/dL (8.5-10.1); Carbon Dioxide 21.6 meq/L (21.0-32.0); Potassium 3.4 meq/L (3.5-5.1)
[2018-01-23 08:43] LABS: Hematocrit 36.6 % (39.0-51.0); Hemoglobin 12.3 gm/dL (13.0-17.0); Mean Corpuscular HGB Conc 33.6 % (32.0-36.0); Mean Corpuscular Hemoglobin 27.5 pg (27.0-34.0); Mean Corpuscular Volume 81.7 fL (80.0-100.0); Platelet Count 261 th/mm3 (150-450); Red Blood Count 4.48 mil/mm3 (4.50-5.90); Red Cell Distribution Width 12.8 % (11.6-17.2); White Blood Count 5.6 th/mm3 (4.0-11.0)
[2018-01-23] MEDS: Potassium Chloride Inj 30 MEQ in Dextrose 5%/NaCl 0.9% Inj 1,000 ML IV.CONT SCH (10:59)
--- NOTE | 2018-01-23 12:26 | CT ---
EXAM DATE: 01/23/2018 12:12 PM EDT AGE/SEX: 72 years / Male INDICATIONS: Chest pain. CLINICAL DATA: This is the patient's initial encounter. Patient reports that signs and symptoms have been present for 2 days and indicates a pain score of 5/10. MEDICAL/SURGICAL HISTORY: Hypertension. Ulcers. None. RADIATION DOSE: 19.70 CTDI (mGy) COMPARISON: No prior exams available for comparison. TECHNIQUE: Volumetric scanning was performed using a multi-row detector CT scanner during bolus infu jhony of 60 ml Omnipaque 350 (iohexol) nonionic water-soluble contrast as a single exam dose. The lianna a was post processed with a variety of visualization algorithms including full volume maximum intensi ty projection and sliding thin slab reformation. Using automated exposure control and adjustment of the mA and/or kV according to patient size, radiation dose was kept as low as reasonably achievable t o obtain optimal diagnostic quality images. DICOM format image data is available electronically for review and comparison. FINDINGS: Examination is positive for numerous central and peripheral bilateral pulmonary emboli, slightly wors e on the left side there is some associated subsegmental atelectasis in the lungs. There is trace margarita ateral pleural. No pneumothorax. No adenopathy. Incidental aberrant right subclavian artery. Mild coronary calcifications. No acute findings in the upper abdomen. 2.5 cm cyst left lobe liver. Numerous gallstones. CONCLUSION: 1. Examination is positive for multiple bilateral central and peripheral pulmonary emboli. Trace ple ural fluid and subsegmental atelectasis in the lungs. Electronically signed by: Freddie Cintron MD 01/23/2018 12:25 PM EDT
[2018-01-23] MEDS ORDERED: Heparin 10,000 UNITS/10 ML Vial (for IV use) IV.PUSH STA (12:34)
--- NOTE | 2018-01-23 12:39 | P.PNIM ---
Subjective Interval history: Patient reports the pain is significantly improved. Mild epigastric discomfort. CT pulmonary angiogram positive for extensive margarita PE Physical Exam Vital signs: Vital Signs 01/22/18 12:55 01/22/18 15:25 01/22/18 16:25 Temperature 98.0 F 98.0 F Pulse Rate 63 78 70 Respiratory Rate 20 18 Blood Pressure 132/89 138/92 H 129/78 Pulse Oximetry 91 L 90 L 90 L 01/22/18 17:25 01/22/18 18:00 01/22/18 18:25 Temperature Pulse Rate 87 88 88 Respiratory Rate Blood Pressure 140/65 133/78 133/78 Pulse Oximetry 90 L 91 L 91 L 01/22/18 19:00 01/22/18 19:52 01/22/18 20:00 Temperature Pulse Rate 90 88 Respiratory Rate Blood Pressure Pulse Oximetry 94 L 95 01/22/18 21:00 01/22/18 22:00 01/22/18 23:00 Temperature Pulse Rate 90 84 83 Respiratory Rate Blood Pressure Pulse Oximetry 01/23/18 00:00 01/23/18 01:00 01/23/18 02:00 Temperature Pulse Rate 80 88 82 Respiratory Rate Blood Pressure Pulse Oximetry 01/23/18 03:00 01/23/18 04:00 01/23/18 05:00 Temperature Pulse Rate 85 106 H 78 Respiratory Rate Blood Pressure Pulse Oximetry 01/23/18 06:00 01/23/18 07:00 01/23/18 08:00 Temperature Pulse Rate 82 85 87 Respiratory Rate Blood Pressure Pulse Oximetry 94 L 01/23/18 09:00 01/23/18 10:00 01/23/18 11:00 Temperature Pulse Rate 76 73 79 Respiratory Rate Blood Pressure Pulse Oximetry Intake & Output 01/22/18 01/23/18 01/23/18 18:59 06:59 18:59 Intake Total 1833 / 1833 240 / 240 1015 / 1015 Output Total 650 / 650 650 / 650 Balance 1183 / 1183 -410 / -410 1015 / 1015 Weight 84.1 kg Intake: IV 1353 / 1353 1015 / 1015 Heparin/D5W 25,000 U/250 mL 25, 53 / 53 000 unit In 250 ml @ Per Protocol 10 mls/hr IV.CONT TITRATE PRN Rx#:[id number] D5W/NS + KCL 20 mEq Inj 1,000 300 / 300 ML @ 60 mls/hr IV.CONT .[id number] [facility] Rx#:[id number] KCl Inj 30 MEQ In D5W/Normal 1015 / 1015 Saline Inj 1,000 ML @ 60 mls/hr IV.CONT .[id number] [facility] Rx#: [id number] NS Inj 1,000 ML @ 125 mls/hr IV 1000 / 1000 .CONT .Q8H [facility] Rx#:[id number] Oral 480 / 480 240 / 240 Output: Urine 650 / 650 650 / 650 Other: # Voids 1 # Urine Diapers 1 Narrative: GENERAL: This is a well-nourished, well-developed patient, in no apparent distress. CARDIOVASCULAR: Normal rate and regular rhythm without murmurs, gallops, or rubs. RESPIRATORY: Good respiratory efforts. Diminished breath sounds at the bases otherwise clear to auscultation bilaterally. GASTROINTESTINAL: Abdomen soft, non-tender, non-distended. Normal active bowel sounds MUSCULOSKELETAL: Extremities without cyanosis, or edema. NEURO: Alert & Oriented x4 to person, place, time, situation. Moves all ext x4 PSYCH: Appropriate mood and affect. Results - Labs CBC & Chem 7: 01/23/18 12:51 01/23/18 06:24 Laboratory Results - last 24 hr 01/22/18 01/22/18 01/22/18 13:38 13:38 13:38 WBC 5.6 RBC 4.38 L Hgb 11.9 L Hct 36.0 L MCV 82.3 MCH 27.1 MCHC 32.9 RDW 12.5 Plt Count 261 MPV 8.6 PT 11.2 INR 1.1 APTT 35.2 H D D-Dimer Quant (PE/DVT) Sodium 144 Potassium 3.0 L Chloride 113 H Carbon Dioxide 24.4 Anion Gap 7 BUN 15 Creatinine 1.07 Estimated GFR 83 L Random Glucose 87 Calcium 8.4 L Total Creatine Kinase Triglycerides Cholesterol LDL Cholesterol, Calc HDL Cholesterol Cholesterol/HDL Ratio 01/22/18 01/22/18 01/23/18 13:38 13:38 06:24 WBC RBC Hgb Hct MCV MCH MCHC RDW Plt Count MPV PT INR APTT D-Dimer Quant (PE/DVT) 5.15 H Sodium 142 Potassium 3.4 L Chloride 112 H Carbon Dioxide 21.6 Anion Gap 8 BUN 9 Creatinine 1.02 Estimated GFR 88 L Random Glucose 89 Calcium 8.4 L Total Creatine Kinase 240 Triglycerides 107 Cholesterol 142 LDL Cholesterol, Calc 90 HDL Cholesterol 31.0 L Cholesterol/HDL Ratio 4.58 01/23/18 06:24 WBC 5.6 RBC 4.48 L Hgb 12.3 L Hct 36.6 L MCV 81.7 MCH 27.5 MCHC 33.6 RDW 12.8 Plt Count 261 MPV 9.0 PT INR APTT D-Dimer Quant (PE/DVT) Sodium Potassium Chloride Carbon Dioxide Anion Gap BUN Creatinine Estimated GFR Random Glucose Calcium Total Creatine Kinase Triglycerides Cholesterol LDL Cholesterol, Calc HDL Cholesterol Cholesterol/HDL Ratio - Imaging Impressions Chest CTA 01/23/18 00:00 CONCLUSION: 1. Examination is positive for multiple bilateral central and peripheral pulmonary emboli. Trace pleural fluid and subsegmental atelectasis in the lungs. Assessment and Plan - Plan 72-year-old male presenting with atypical chest pain. Patient found to have extensive bilateral pulmonary embolism. Acute bilateral pulmonary embolism: Appear to be unprovoked. - We will start the patient on heparin drip. If he remains stable we will plan to transition him to NOAC in the next 24-48 hours. - Supplemental oxygen Atypical chest pain/epigastric pain + indeterminate trop .44 -Appreciate cardiology following. Status post heart cath with mild CAD. Epigastric pain - History of peptic ulcer disease. -GI following and was planning for endoscopy. Given his pain is significantly improved and he has acute PE. We will advise holding off on EGD for now. Hypokalemia -Replace KCl. Smoker- counselled extensively
[2018-01-23 13:17] LABS: Hematocrit 35.6 % (39.0-51.0); Hemoglobin 12.1 gm/dL (13.0-17.0); Mean Corpuscular Hemoglobin 27.5 pg (27.0-34.0); Mean Corpuscular Volume 80.8 fL (80.0-100.0); Mean Platelet Volume 8.3 fL (7.0-11.0); Platelet Count 272 th/mm3 (150-450); Red Cell Distribution Width 12.7 % (11.6-17.2); White Blood Count 5.6 th/mm3 (4.0-11.0)
[2018-01-23 13:26] LABS: Activated Partial Thrombo Time 27.7 sec (24.3-30.1); INR 1.1 Ratio; Prothrombin Time 11.2 sec (9.8-11.6)
[2018-01-23] MEDS: Heparin Drip 25,000 UNIT/250 ML BAG IV.CONT PRN (13:58)
--- NOTE | 2018-01-23 14:41 | P.PNCA ---
Subjective Interval history: Feels better CTA reviewed showing bilaterally PEs Physical Exam Vital signs: Vital Signs 01/22/18 15:25 01/22/18 16:25 01/22/18 17:25 Temperature 98.0 F Pulse Rate 78 70 87 Respiratory Rate 18 Blood Pressure 138/92 H 129/78 140/65 Pulse Oximetry 90 L 90 L 90 L 01/22/18 18:00 01/22/18 18:25 01/22/18 19:00 Temperature Pulse Rate 88 88 90 Respiratory Rate Blood Pressure 133/78 133/78 Pulse Oximetry 91 L 91 L 01/22/18 19:52 01/22/18 20:00 01/22/18 21:00 Temperature Pulse Rate 88 90 Respiratory Rate Blood Pressure Pulse Oximetry 94 L 95 01/22/18 22:00 01/22/18 23:00 01/23/18 00:00 Temperature Pulse Rate 84 83 80 Respiratory Rate Blood Pressure Pulse Oximetry 01/23/18 01:00 01/23/18 02:00 01/23/18 03:00 Temperature Pulse Rate 88 82 85 Respiratory Rate Blood Pressure Pulse Oximetry 01/23/18 04:00 01/23/18 05:00 01/23/18 06:00 Temperature Pulse Rate 106 H 78 82 Respiratory Rate Blood Pressure Pulse Oximetry 01/23/18 07:00 01/23/18 08:00 01/23/18 09:00 Temperature Pulse Rate 85 87 76 Respiratory Rate Blood Pressure Pulse Oximetry 94 L 01/23/18 10:00 01/23/18 11:00 01/23/18 12:00 Temperature Pulse Rate 73 79 88 Respiratory Rate Blood Pressure Pulse Oximetry 01/23/18 13:00 01/23/18 14:00 Temperature Pulse Rate 83 90 Respiratory Rate Blood Pressure Pulse Oximetry Intake & Output 01/22/18 01/23/18 01/23/18 18:59 06:59 18:59 Intake Total 1833 / 1833 240 / 240 1015 / 1015 Output Total 650 / 650 650 / 650 Balance 1183 / 1183 -410 / -410 1015 / 1015 Weight 84.1 kg Intake: IV 1353 / 1353 1015 / 1015 Heparin/D5W 25,000 U/250 mL 25, 53 / 53 000 unit In 250 ml @ Per Protocol 10 mls/hr IV.CONT TITRATE PRN Rx#:[id number] D5W/NS + KCL 20 mEq Inj 1,000 300 / 300 ML @ 60 mls/hr IV.CONT .[id number] [facility] Rx#:[id number] KCl Inj 30 MEQ In D5W/Normal 1015 / 1015 Saline Inj 1,000 ML @ 60 mls/hr IV.CONT .[id number] [facility] Rx#: [id number] NS Inj 1,000 ML @ 125 mls/hr IV 1000 / 1000 .CONT .Q8H [facility] Rx#:[id number] Oral 480 / 480 240 / 240 Output: Urine 650 / 650 650 / 650 Other: # Voids 1 # Urine Diapers 1 Narrative: GENERAL: NAD, AAOx3 SKIN: Warm and dry. HEAD: Atraumatic. Normocephalic. EYES: Pupils equal and round. No scleral icterus. No injection or drainage. ENT: No nasal bleeding or discharge. Mucous membranes pink and moist. NECK: Trachea midline. No JVD. CARDIOVASCULAR: Regular rate and rhythm. RESPIRATORY: No accessory muscle use. Clear to auscultation. Breath sounds equal bilaterally. GASTROINTESTINAL: Abdomen soft, non-tender, nondistended. Hepatic and splenic margins not palpable. MUSCULOSKELETAL: Extremities without clubbing, cyanosis, or edema. No obvious deformities. NEUROLOGICAL: Awake and alert. No obvious cranial nerve deficits. Motor grossly within normal limits. Five out of 5 muscle strength in the arms and legs. Normal speech. PSYCHIATRIC: Appropriate mood and affect; insight and judgment normal. Assessment and Plan - Assessment (1) Pulmonary embolism Code(s): I26.99 - Other pulmonary embolism without acute cor pulmonale Status : Acute (2) Chest pain, rule out acute myocardial infarction Code(s): R07.9 - Chest pain, unspecified Status: Acute (3) Epigastric abdominal pain Code(s): R10.13 - Epigastric pain Status: Acute (4) Stomach discomfort Code(s): R10.9 - Unspecified abdominal pain Status: Acute - Plan 1) Chest pain secondary to bilateral PE Discussed with primary team, will place on Heparin drip Most likely transfer to NOAC vs Coumadin 2) Hemodynamically stable Reviewed echo Increased pulmonary pressures RV with free wall moving 3) Elevated trop secondary to PE 4) Mild CAD by cath 5) Doubt due to previous surgery Should have further work up per Heme/Onc Can be done outpt
--- NOTE | 2018-01-23 16:08 | US ---
EXAM DATE: 01/23/2018 3:49 PM EDT AGE/SEX: 72 years / Male INDICATIONS: Bilateral leg swelling. CLINICAL DATA: This is the patient's initial encounter. Patient reports that signs and symptoms have been present for 1 day and indicates a pain score of 0/10. MEDICAL/SURGICAL HISTORY: Hypercholesterolemia. Hypertension. Tobacco use. Total knee replace ment, left. Total knee replacement, right. COMPARISON: T[facility], CT KNEE W/O CONTRAST, LEFT, 12/29/2016. . TECHNIQUE: Venous ultrasound of both lower extremities was performed from the inguinal ligament to t he proximal calf. Real-time, color Doppler and spectral tracing, compression and augmentation techni ques were used. FINDINGS: Right Leg: Normal compression of the deep venous system from the inguinal region to the proximal jose a f. No echogenic clot is seen. Normal response of the venous system to augmentation and respiration. Left Leg: Partially occlusive thrombus in the left popliteal vein with occlusive thrombus in the lef t peroneal and posterior tibial veins. Remaining deep venous system compresses normally to the inguin al region without evidence for additional echogenic clot. Other: None. CONCLUSION: 1. Left calf DVT with partially occlusive thrombus extending to the popliteal vein. 2. No sonographic evidence for right lower extremity DVT. Electronically signed by: Prem Richard MD 01/23/2018 4:06 PM EDT
[2018-01-23] MEDS ORDERED: PEG 3350/E-Lyte Soln 4000 ML Bottle PO ONE (16:20)
--- NOTE | 2018-01-23 21:04 | P.PNGI ---
Subjective Interval history: Comfortable in bed no new complaints doing better Physical Exam Vital signs: Vital Signs 01/22/18 22:00 01/22/18 23:00 01/23/18 00:00 Temperature Pulse Rate 84 83 80 Blood Pressure Pulse Oximetry 01/23/18 01:00 01/23/18 02:00 01/23/18 03:00 Temperature Pulse Rate 88 82 85 Blood Pressure Pulse Oximetry 01/23/18 04:00 01/23/18 05:00 01/23/18 06:00 Temperature Pulse Rate 106 H 78 82 Blood Pressure Pulse Oximetry 01/23/18 07:00 01/23/18 08:00 01/23/18 09:00 Temperature Pulse Rate 85 87 76 Blood Pressure Pulse Oximetry 94 L 01/23/18 10:00 01/23/18 11:00 01/23/18 12:00 Temperature Pulse Rate 73 79 88 Blood Pressure Pulse Oximetry 01/23/18 13:00 01/23/18 14:00 01/23/18 15:00 Temperature Pulse Rate 83 90 88 Blood Pressure Pulse Oximetry 01/23/18 15:43 01/23/18 16:00 01/23/18 17:00 Temperature 98.0 F Pulse Rate 76 82 76 Blood Pressure 138/94 H Pulse Oximetry 97 01/23/18 17:11 01/23/18 18:00 01/23/18 19:00 Temperature Pulse Rate 87 89 Blood Pressure Pulse Oximetry 97 Intake & Output 01/23/18 01/23/18 01/24/18 06:59 18:59 06:59 Intake Total 240 / 240 1805 / 1805 Output Total 650 / 650 400 / 400 Balance -410 / -410 1405 / 1405 Weight 84.1 kg Intake: IV 1165 / 1165 KCl Inj 30 MEQ In D5W/Normal 1165 / 1165 Saline Inj 1,000 ML @ 60 mls/hr IV.CONT .[id number] [facility] Rx#: [id number] Oral 240 / 240 640 / 640 Output: Urine 650 / 650 400 / 400 Other: # Voids 1 # Urine Diapers 2 - Constitutional no acute distress - Routine HEENT Exam Head: Present: normocephalic Eye: Present: EOMI - Routine Neck Exam Present: supple - Routine Respiratory Exam Present: CTA bilaterally - Routine Cardiovascular Exam Present: S1, S2 - Routine Abdominal Exam Present: soft, normoactive bowel sounds - Routine Extremities Exam Absent: cyanosis, clubbing, edema Results - Labs CBC & Chem 7: 01/23/18 12:51 01/23/18 06:24 Laboratory Results - last 24 hr 01/23/18 01/23/18 01/23/18 06:24 06:24 12:51 WBC 5.6 5.6 RBC 4.48 L 4.40 L Hgb 12.3 L 12.1 L Hct 36.6 L 35.6 L MCV 81.7 80.8 MCH 27.5 27.5 MCHC 33.6 34.0 RDW 12.8 12.7 Plt Count 261 272 MPV 9.0 8.3 PT INR APTT Sodium 142 Potassium 3.4 L Chloride 112 H Carbon Dioxide 21.6 Anion Gap 8 BUN 9 Creatinine 1.02 Estimated GFR 88 L Random Glucose 89 Calcium 8.4 L Total Creatine Kinase 240 01/23/18 01/23/18 12:51 19:15 WBC RBC Hgb Hct MCV MCH MCHC RDW Plt Count MPV PT 11.2 INR 1.1 APTT 27.7 D 62.2 H D Sodium Potassium Chloride Carbon Dioxide Anion Gap BUN Creatinine Estimated GFR Random Glucose Calcium Total Creatine Kinase Microbiology 01/23/18 13:00 Stool Stool Occult Blood ([facility]) - Final Hemoccult negative - Imaging Impressions Chest CTA 01/23/18 00:00 CONCLUSION: 1. Examination is positive for multiple bilateral central and peripheral pulmonary emboli. Trace pleural fluid and subsegmental atelectasis in the lungs. Venous Doppler Study 01/23/18 00:00 CONCLUSION: 1. Left calf DVT with partially occlusive thrombus extending to the popliteal vein. 2. No sonographic evidence for right lower extremity DVT. Assessment and Plan (1) Epigastric abdominal pain Status: Acute Code(s): R10.13 - Epigastric pain (2) Stomach discomfort Status: Acute Code(s): R10.9 - Unspecified abdominal pain - Plan Epigastric pain described as a burning sensation over the past month but worsened over the past 2-3 hours before admission. Patient initially had mild increased troponin and cardiac workup was initiated. Patient is post heart cath today and is pending 2D echo to rule out PE. Cardiac workup is still in process. History of constipation in which patient took: Prepped this past week, but notes loose stools for the past 5 days. This could be related to colon prep versus IBS. EGD done approximately 10 years ago with a history of small gastric ulcers Colonoscopy 3-4 years ago with history of polyp CT scan performed this admission shows cholelithiasis and diverticulosis. Labs show hemoglobin 13.1. PT/INR 1.1 and bilirubin and LFTs normal range Patient found to have extensive pulmonary embolism This may explain some of his pain Plan Diet per attending At this point nothing urgent from a GI perspective, continue PPI and bowel regimen Patient should follow-up with GI post discharge most likely will need endoscopy but this can be done on outpatient basis Monitor labs Not much to add at this point from a GI perspective we will sign off
[2018-01-24] MEDS: Heparin Drip 25,000 UNIT/250 ML BAG IV.CONT PRN (05:33)
[2018-01-24 06:24] LABS: Hematocrit 36.5 % (39.0-51.0); Hemoglobin 12.1 gm/dL (13.0-17.0); Mean Corpuscular HGB Conc 33.2 % (32.0-36.0); Mean Corpuscular Hemoglobin 27.1 pg (27.0-34.0); Mean Corpuscular Volume 81.6 fL (80.0-100.0); Platelet Count 276 th/mm3 (150-450); Red Blood Count 4.47 mil/mm3 (4.50-5.90); Red Cell Distribution Width 12.8 % (11.6-17.2); White Blood Count 5.7 th/mm3 (4.0-11.0)
--- NOTE | 2018-01-24 16:46 | P.PNIM ---
Subjective Interval history: Patient reports he is feeling okay except for mild shortness of breath. Still requiring oxygen Physical Exam Vital signs: Vital Signs 01/23/18 17:00 01/23/18 17:11 01/23/18 18:00 Temperature Pulse Rate 76 87 Respiratory Rate Blood Pressure Pulse Oximetry 97 Pulse Oximetry [Exertion on Room Air] Pulse Oximetry [Resting on Room Air] Pulse Oximetry [Resting with Oxygen] 01/23/18 19:00 01/23/18 20:00 01/23/18 21:00 Temperature 98.4 F Pulse Rate 80 87 92 H Respiratory Rate 16 Blood Pressure 119/80 Pulse Oximetry 97 97 Pulse Oximetry [Exertion on Room Air] Pulse Oximetry [Resting on Room Air] Pulse Oximetry [Resting with Oxygen] 01/23/18 22:00 01/23/18 23:00 01/24/18 00:00 Temperature 98.5 F Pulse Rate 77 82 84 Respiratory Rate 16 Blood Pressure 119/79 Pulse Oximetry 98 Pulse Oximetry [Exertion on Room Air] Pulse Oximetry [Resting on Room Air] Pulse Oximetry [Resting with Oxygen] 01/24/18 01:00 01/24/18 02:00 01/24/18 03:00 Temperature 98 F Pulse Rate 83 79 80 Respiratory Rate 16 Blood Pressure 100/63 Pulse Oximetry 98 Pulse Oximetry [Exertion on Room Air] Pulse Oximetry [Resting on Room Air] Pulse Oximetry [Resting with Oxygen] 01/24/18 04:00 01/24/18 04:57 01/24/18 06:00 Temperature Pulse Rate 72 81 72 Respiratory Rate Blood Pressure Pulse Oximetry Pulse Oximetry [Exertion on Room Air] Pulse Oximetry [Resting on Room Air] Pulse Oximetry [Resting with Oxygen] 01/24/18 07:00 01/24/18 08:00 01/24/18 09:00 Temperature 98 F Pulse Rate 86 76 86 Respiratory Rate 18 Blood Pressure 121/90 Pulse Oximetry 99 99 Pulse Oximetry [Exertion on Room Air] Pulse Oximetry [Resting on Room Air] Pulse Oximetry [Resting with Oxygen] 01/24/18 10:00 01/24/18 11:00 01/24/18 12:00 Temperature 97.6 F Pulse Rate 76 78 79 Respiratory Rate 18 Blood Pressure 132/91 H Pulse Oximetry 97 Pulse Oximetry [Exertion on Room Air] Pulse Oximetry [Resting on Room Air] Pulse Oximetry [Resting with Oxygen] 01/24/18 13:00 01/24/18 13:50 01/24/18 14:00 Temperature Pulse Rate 77 68 Respiratory Rate Blood Pressure Pulse Oximetry Pulse Oximetry [Exertion on Room Air] 87 L Pulse Oximetry [Resting on Room Air] 97 Pulse Oximetry [Resting with Oxygen] 95 01/24/18 15:00 01/24/18 16:00 Temperature 98.1 F Pulse Rate 80 80 Respiratory Rate 16 Blood Pressure 125/91 H Pulse Oximetry 99 Pulse Oximetry [Exertion on Room Air] Pulse Oximetry [Resting on Room Air] Pulse Oximetry [Resting with Oxygen] Intake & Output 01/23/18 01/24/18 01/24/18 18:59 06:59 18:59 Intake Total 1805 / 1805 490 / 490 Output Total 400 / 400 575 / 575 Balance 1405 / 1405 -85 / -85 Weight 84 kg Intake: IV 1165 / 1165 250 / 250 Heparin/D5W 25,000 U/250 mL 25, 250 / 250 000 unit In 250 ml @ 1,500 UNITS/HR 15 mls/hr IV.CONT TITRATE PRN Rx#:[id number] KCl Inj 30 MEQ In D5W/Normal 1165 / 1165 Saline Inj 1,000 ML @ 60 mls/hr IV.CONT .[id number] [facility] Rx#: [id number] Oral 640 / 640 240 / 240 Output: Urine 400 / 400 575 / 575 Other: # Urine Diapers 2 Date of Last Bowel Movement 01/23/18 01/23/18 Narrative: GENERAL: This is a well-nourished, well-developed patient, in no apparent distress. CARDIOVASCULAR: Normal rate and regular rhythm without murmurs, gallops, or rubs. RESPIRATORY: Good respiratory efforts. Diminished breath sounds at the bases otherwise clear to auscultation bilaterally. GASTROINTESTINAL: Abdomen soft, non-tender, non-distended. Normal active bowel sounds MUSCULOSKELETAL: Extremities without cyanosis, or edema. NEURO: Alert & Oriented x4 to person, place, time, situation. Moves all ext x4 PSYCH: Appropriate mood and affect. Results - Labs CBC & Chem 7: 01/24/18 05:09 01/23/18 06:24 Laboratory Results - last 24 hr 01/23/18 01/24/1818 19:15 00:27 05:09 WBC 5.7 RBC 4.47 L Hgb 12.1 L Hct 36.5 L MCV 81.6 MCH 27.1 MCHC 33.2 RDW 12.8 Plt Count 276 MPV 9.0 APTT 62.2 H D 62.1 H 01/24/18 05:09 WBC RBC Hgb Hct MCV MCH MCHC RDW Plt Count MPV APTT 60.9 H Microbiology 01/23/18 13:00 Stool Stool Occult Blood ([facility]) - Final Hemoccult negative Assessment and Plan - Plan 72-year-old male presenting with atypical chest pain. Patient found to have extensive bilateral pulmonary embolism. Acute bilateral pulmonary embolism: Appear to be unprovoked. -Given extensive PE, we will continue heparin drip for a total of 48 hours, then transition him to an OAC tomorrow -He will likely require home oxygen. Will order home oxygen walk test. Atypical chest pain/epigastric pain + indeterminate trop .44 likely secondary to PE. -Appreciate cardiology following. Status post heart cath with mild CAD. -LDL 90. Blood pressure normal. Epigastric pain - History of peptic ulcer disease. -GI followed the patient. Advised outpatient follow-up with GI for endoscopy. Hypokalemia -Replace KCl. Smoker- counselled extensively Discharge Planning: Plan to discharge tomorrow in a.m. if he remains stable.
--- NOTE | 2018-01-24 18:12 | P.PNCA ---
Subjective Interval history: No events overnight Plan on oxygen walk test Physical Exam Vital signs: Vital Signs 01/23/18 19:00 01/23/18 20:00 01/23/18 21:00 Temperature 98.4 F Pulse Rate 80 87 92 H Respiratory Rate 16 Blood Pressure 119/80 Pulse Oximetry 97 97 Pulse Oximetry [Exertion on Room Air] Pulse Oximetry [Resting on Room Air] Pulse Oximetry [Resting with Oxygen] 01/23/18 22:00 01/23/18 23:00 01/24/18 00:00 Temperature 98.5 F Pulse Rate 77 82 84 Respiratory Rate 16 Blood Pressure 119/79 Pulse Oximetry 98 Pulse Oximetry [Exertion on Room Air] Pulse Oximetry [Resting on Room Air] Pulse Oximetry [Resting with Oxygen] 01/24/18 01:00 01/24/18 02:00 01/24/18 03:00 Temperature 98 F Pulse Rate 83 79 80 Respiratory Rate 16 Blood Pressure 100/63 Pulse Oximetry 98 Pulse Oximetry [Exertion on Room Air] Pulse Oximetry [Resting on Room Air] Pulse Oximetry [Resting with Oxygen] 01/24/18 04:00 01/24/18 04:57 01/24/18 06:00 Temperature Pulse Rate 72 81 72 Respiratory Rate Blood Pressure Pulse Oximetry Pulse Oximetry [Exertion on Room Air] Pulse Oximetry [Resting on Room Air] Pulse Oximetry [Resting with Oxygen] 01/24/18 07:00 01/24/18 08:00 01/24/18 09:00 Temperature 98 F Pulse Rate 86 76 86 Respiratory Rate 18 Blood Pressure 121/90 Pulse Oximetry 99 99 Pulse Oximetry [Exertion on Room Air] Pulse Oximetry [Resting on Room Air] Pulse Oximetry [Resting with Oxygen] 01/24/18 10:00 01/24/18 11:00 01/24/18 12:00 Temperature 97.6 F Pulse Rate 76 78 79 Respiratory Rate 18 Blood Pressure 132/91 H Pulse Oximetry 97 Pulse Oximetry [Exertion on Room Air] Pulse Oximetry [Resting on Room Air] Pulse Oximetry [Resting with Oxygen] 01/24/18 13:00 01/24/18 13:50 01/24/18 14:00 Temperature Pulse Rate 77 68 Respiratory Rate Blood Pressure Pulse Oximetry Pulse Oximetry [Exertion on Room Air] 87 L Pulse Oximetry [Resting on Room Air] 97 Pulse Oximetry [Resting with Oxygen] 95 01/24/18 15:00 01/24/18 16:00 01/24/18 17:00 Temperature 98.1 F Pulse Rate 80 80 87 Respiratory Rate 16 Blood Pressure 125/91 H Pulse Oximetry 99 Pulse Oximetry [Exertion on Room Air] Pulse Oximetry [Resting on Room Air] Pulse Oximetry [Resting with Oxygen] Intake & Output 01/23/18 01/24/18 01/24/18 18:59 06:59 18:59 Intake Total 1805 / 1805 490 / 490 Output Total 400 / 400 575 / 575 Balance 1405 / 1405 -85 / -85 Weight 84 kg Intake: IV 1165 / 1165 250 / 250 Heparin/D5W 25,000 U/250 mL 25, 250 / 250 000 unit In 250 ml @ 1,500 UNITS/HR 15 mls/hr IV.CONT TITRATE PRN Rx#:[id number] KCl Inj 30 MEQ In D5W/Normal 1165 / 1165 Saline Inj 1,000 ML @ 60 mls/hr IV.CONT .[id number] [facility] Rx#: [id number] Oral 640 / 640 240 / 240 Output: Urine 400 / 400 575 / 575 Other: # Urine Diapers 2 Date of Last Bowel Movement 01/23/18 01/23/18 Narrative: GENERAL: This is a well-nourished, well-developed patient, in no apparent distress. CARDIOVASCULAR: Normal rate and regular rhythm without murmurs, gallops, or rubs. RESPIRATORY: Good respiratory efforts. Diminished breath sounds at the bases otherwise clear to auscultation bilaterally. GASTROINTESTINAL: Abdomen soft, non-tender, non-distended. Normal active bowel sounds MUSCULOSKELETAL: Extremities without cyanosis, or edema. NEURO: Alert & Oriented x4 to person, place, time, situation. Moves all ext x4 PSYCH: Appropriate mood and affect. Assessment and Plan - Assessment (1) Pulmonary embolism Code(s): I26.99 - Other pulmonary embolism without acute cor pulmonale Status : Acute (2) Chest pain, rule out acute myocardial infarction Code(s): R07.9 - Chest pain, unspecified Status: Acute (3) Epigastric abdominal pain Code(s): R10.13 - Epigastric pain Status: Acute (4) Stomach discomfort Code(s): R10.9 - Unspecified abdominal pain Status: Acute - Plan 1) Chest pain secondary to bilateral PE Discussed with primary team, will place on Heparin drip Most likely transfer to NOAC 2) Hemodynamically stable Reviewed echo Increased pulmonary pressures RV with free wall moving Plan to repeat echo in a few months in the office 3) Elevated trop secondary to PE 4) Mild CAD by cath 5) Doubt due to previous surgery Should have further work up per Heme/Onc Can be done outpt
[2018-01-25 06:02] LABS: Mean Corpuscular HGB Conc 33.5 % (32.0-36.0); Mean Corpuscular Hemoglobin 27.3 pg (27.0-34.0); Mean Corpuscular Volume 81.4 fL (80.0-100.0); Mean Platelet Volume 8.5 fL (7.0-11.0); Platelet Count 288 th/mm3 (150-450); Red Blood Count 4.42 mil/mm3 (4.50-5.90); Red Cell Distribution Width 12.5 % (11.6-17.2); White Blood Count 5.9 th/mm3 (4.0-11.0)
[2018-01-25 08:36] VITALS: O2SAT 98
--- NOTE | 2018-01-25 08:48 | P.DS ---
Date of admission: 01/24/18 06:40 Primary care physician: UNKNOWN Brief History from admission: HPI from the admitting physician: Patient is a 72-year-old male with known history of hypertension, who is admitted last evening for chest pain. Takes 2 types of blood pressure For the past 2 weeks now has been experiencing epigastric burning pain lasting for about 2-3 hours at that time with no associated nausea or vomiting. This would last for few hours. Denies any fever chills cough. Last evening pain was radiating to the left side of the chest "ribs then moved to the right". This was worse when he coughed. This prompted patient to come into the ER and admitted for further evaluation. Patient denies any bowel movement changes irregular brown stools however he admits that it was stools last loose last evening. Patient states history of ulcer and had an EEG date EGD done 10 years ago which shows a small ulcer. Patient on review of medications is unsure about his medications - listed was Mobic but states states he thinks he is not taking it. He said he will have his son bring him his for his list of medications. He states he is on 2 types of blood pressure medications. When I told him names -what these are he said he is not familiar and as stated will have his son bring in medications. Update on the day of discharge: Patient reports he is feeling great. No new issues. He is eager to go home. DS: Diagnosis - Discharge Diagnosis (1) Epigastric abdominal pain Status: Acute (2) Pulmonary embolism Status: Acute (3) Hypoxemia Status: Acute DS: Medications - Discharge Medications Prescriptions: apixaban [Eliquis] 5 mg PO BID #37 tab DS: Summary Hospital Course: 72-year-old male presenting with atypical chest pain. Patient found to have extensive bilateral pulmonary embolism. Treatment course detailed below: Acute bilateral pulmonary embolism: Appear to be unprovoked. -Given extensive PE, pateint was treated with Heparin drip, then transitioned to Eliquis - He is advised to follow up with PCP for Hematology consult. Hypercoagulable workup can be considered outpatient. Hypoxemia: - Secondary to above. requires about 2 L. He is discharged with home oxygen. Atypical chest pain/epigastric pain + indeterminate trop .44 likely secondary to PE. -Appreciate cardiology following. Status post heart cath with mild CAD. -LDL 90. Blood pressure normal. Epigastric pain - History of peptic ulcer disease. -GI followed the patient. Advised outpatient follow-up with GI for endoscopy. Hypokalemia -Replaced KCl. Smoker- counselled extensively - Time Spent with Patient Total time spent providing and/or coordinating discharge services: Less than 30 minutes Exam Vital signs: Vital Signs 01/24/18 09:00 01/24/18 10:00 01/24/18 11:00 Temperature 97.6 F Pulse Rate 86 76 78 Respiratory Rate 18 Blood Pressure 132/91 H Pulse Oximetry 97 Pulse Oximetry [Exertion on Room Air] Pulse Oximetry [Resting on Room Air] Pulse Oximetry [Resting with Oxygen] 01/24/18 12:00 01/24/18 13:00 01/24/18 13:50 Temperature Pulse Rate 79 77 Respiratory Rate Blood Pressure Pulse Oximetry Pulse Oximetry [Exertion on Room Air] 87 L Pulse Oximetry [Resting on Room Air] 97 Pulse Oximetry [Resting with Oxygen] 95 01/24/18 14:00 01/24/18 15:00 01/24/18 16:00 Temperature 98.1 F Pulse Rate 68 80 80 Respiratory Rate 16 Blood Pressure 125/91 H Pulse Oximetry 99 Pulse Oximetry [Exertion on Room Air] Pulse Oximetry [Resting on Room Air] Pulse Oximetry [Resting with Oxygen] 01/24/18 17:00 01/24/18 18:00 01/24/18 20:00 Temperature 98.1 F Pulse Rate 87 84 77 Respiratory Rate 18 Blood Pressure 116/78 Pulse Oximetry 2 L Pulse Oximetry [Exertion on Room Air] Pulse Oximetry [Resting on Room Air] Pulse Oximetry [Resting with Oxygen] 01/24/18 21:00 01/24/18 22:00 01/24/18 23:00 Temperature Pulse Rate 82 84 84 Respiratory Rate Blood Pressure Pulse Oximetry Pulse Oximetry [Exertion on Room Air] Pulse Oximetry [Resting on Room Air] Pulse Oximetry [Resting with Oxygen] 01/25/18 00:00 01/25/18 01:00 01/25/18 02:00 Temperature 98.6 F Pulse Rate 66 74 74 Respiratory Rate 18 Blood Pressure 117/85 Pulse Oximetry 2 L Pulse Oximetry [Exertion on Room Air] Pulse Oximetry [Resting on Room Air] Pulse Oximetry [Resting with Oxygen] 01/25/18 03:00 01/25/18 04:00 01/25/18 05:00 Temperature 98.7 F Pulse Rate 74 75 88 Respiratory Rate 18 Blood Pressure 118/74 Pulse Oximetry 2 L Pulse Oximetry [Exertion on Room Air] Pulse Oximetry [Resting on Room Air] Pulse Oximetry [Resting with Oxygen] 01/25/18 06:00 01/25/18 07:00 01/25/18 08:00 Temperature 98.1 F Pulse Rate 82 72 Respiratory Rate 20 Blood Pressure 121/93 H Pulse Oximetry 98 98 Pulse Oximetry [Exertion on Room Air] Pulse Oximetry [Resting on Room Air] Pulse Oximetry [Resting with Oxygen] Intake & Output 01/24/18 01/25/18 01/25/18 18:59 06:59 18:59 Intake Total 1200 / 1200 490 / 490 Output Total 250 / 250 Balance 1200 / 1200 240 / 240 Weight 83.9 kg Intake: IV 250 / 250 Heparin/D5W 25,000 U/250 mL 25, 250 / 250 000 unit In 250 ml @ 1,500 UNITS/HR 15 mls/hr IV.CONT TITRATE PRN Rx#:[id number] Oral 1200 / 1200 240 / 240 Output: Urine 250 / 250 Other: # Voids 3 Date of Last Bowel Movement 01/23/18 01/24/18 01/24/18 Narrative: GENERAL: This is a well-nourished, well-developed patient, in no apparent distress. CARDIOVASCULAR: Regular rate and rhythm without murmurs, gallops, or rubs. RESPIRATORY: Clear to auscultation. Breath sounds equal bilaterally. No wheezes , rales, or rhonchi. GASTROINTESTINAL: Abdomen soft, non-tender, nondistended. Normal active bowel sounds MUSCULOSKELETAL: Extremities without clubbing, cyanosis, or edema. NEURO: Alert & Oriented x4 to person, place, time, situation. Moves all ext x4 Results Procedures completed during hospitalization: Heart Cath Labs on day of discharge: Labs from last 24 hours 01/25/18 05:38 WBC 5.9 RBC 4.42 L Hgb 12.0 L Hct 36.0 L MCV 81.4 MCH 27.3 MCHC 33.5 RDW 12.5 Plt Count 288 MPV 8.5 - Impressions ITS Impressions Chest X-Ray 01/21/18 23:55 CONCLUSION: No acute cardiopulmonary disease. Abdomen/Pelvis CT 01/22/18 00:00 CONCLUSION: 1. No acute abnormality to explain the patient's pain. 2. Cholelithiasis. 3. Colonic diverticulosis. Chest CTA 01/23/18 00:00 CONCLUSION: 1. Examination is positive for multiple bilateral central and peripheral pulmonary emboli. Trace pleural fluid and subsegmental atelectasis in the lungs. Venous Doppler Study 01/23/18 00:00 CONCLUSION: 1. Left calf DVT with partially occlusive thrombus extending to the popliteal vein. 2. No sonographic evidence for right lower extremity DVT. Discharge Plan - Discharge Disposition Patient Disposition: Discharge Home - Discharge Condition Condition: Serious - Discharge Order Discharge Orders: Discharge Order (Routine); Ordered 01/25/18 Ordered By: Nicki Hernández - Physicians Team Primary Care Provider: UNKNOWN, Attending Provider: Nicki Hernández Other Providers: Lacy,[employer] ; Marcial Beyer DO ; Bryan Jewell MD
[2018-01-25 11:30] VITALS: BP 113/77; RESP 18; TEMP 98
--- NOTE | 2018-01-25 12:07 | P.PNCA ---
Subjective Interval history: No events overnight Feels better Physical Exam Vital signs: Vital Signs 01/24/18 13:00 01/24/18 13:50 01/24/18 14:00 Temperature Pulse Rate 77 68 Respiratory Rate Blood Pressure Pulse Oximetry Pulse Oximetry [Exertion on Room Air] 87 L Pulse Oximetry [Resting on Room Air] 97 Pulse Oximetry [Resting with Oxygen] 95 01/24/18 15:00 01/24/18 16:00 01/24/18 17:00 Temperature 98.1 F Pulse Rate 80 80 87 Respiratory Rate 16 Blood Pressure 125/91 H Pulse Oximetry 99 Pulse Oximetry [Exertion on Room Air] Pulse Oximetry [Resting on Room Air] Pulse Oximetry [Resting with Oxygen] 01/24/18 18:00 01/24/18 20:00 01/24/18 21:00 Temperature 98.1 F Pulse Rate 84 77 82 Respiratory Rate 18 Blood Pressure 116/78 Pulse Oximetry 2 L Pulse Oximetry [Exertion on Room Air] Pulse Oximetry [Resting on Room Air] Pulse Oximetry [Resting with Oxygen] 01/24/18 22:00 01/24/18 23:00 01/25/18 00:00 Temperature 98.6 F Pulse Rate 84 84 66 Respiratory Rate 18 Blood Pressure 117/85 Pulse Oximetry 2 L Pulse Oximetry [Exertion on Room Air] Pulse Oximetry [Resting on Room Air] Pulse Oximetry [Resting with Oxygen] 01/25/18 01:00 01/25/18 02:00 01/25/18 03:00 Temperature Pulse Rate 74 74 74 Respiratory Rate Blood Pressure Pulse Oximetry Pulse Oximetry [Exertion on Room Air] Pulse Oximetry [Resting on Room Air] Pulse Oximetry [Resting with Oxygen] 01/25/18 04:00 01/25/18 05:00 01/25/18 06:00 Temperature 98.7 F Pulse Rate 75 88 82 Respiratory Rate 18 Blood Pressure 118/74 Pulse Oximetry 2 L Pulse Oximetry [Exertion on Room Air] Pulse Oximetry [Resting on Room Air] Pulse Oximetry [Resting with Oxygen] 01/25/18 07:00 01/25/18 08:00 01/25/18 09:00 Temperature 98.1 F Pulse Rate 72 82 88 Respiratory Rate 20 Blood Pressure 121/93 H Pulse Oximetry 98 98 Pulse Oximetry [Exertion on Room Air] Pulse Oximetry [Resting on Room Air] Pulse Oximetry [Resting with Oxygen] 01/25/18 10:00 01/25/18 11:00 Temperature 98 F Pulse Rate 102 H 86 Respiratory Rate 18 Blood Pressure 113/77 Pulse Oximetry 98 Pulse Oximetry [Exertion on Room Air] Pulse Oximetry [Resting on Room Air] Pulse Oximetry [Resting with Oxygen] Intake & Output 01/24/18 01/25/18 01/25/18 18:59 06:59 18:59 Intake Total 1200 / 1200 490 / 490 Output Total 250 / 250 Balance 1200 / 1200 240 / 240 Weight 83.9 kg Intake: IV 250 / 250 Heparin/D5W 25,000 U/250 mL 25, 250 / 250 000 unit In 250 ml @ 1,500 UNITS/HR 15 mls/hr IV.CONT TITRATE PRN Rx#:[id number] Oral 1200 / 1200 240 / 240 Output: Urine 250 / 250 Other: # Voids 3 Date of Last Bowel Movement 01/23/18 01/24/18 01/24/18 Narrative: GENERAL: This is a well-nourished, well-developed patient, in no apparent distress. CARDIOVASCULAR: Normal rate and regular rhythm without murmurs, gallops, or rubs. RESPIRATORY: Good respiratory efforts. Diminished breath sounds at the bases otherwise clear to auscultation bilaterally. GASTROINTESTINAL: Abdomen soft, non-tender, non-distended. Normal active bowel sounds MUSCULOSKELETAL: Extremities without cyanosis, or edema. NEURO: Alert & Oriented x4 to person, place, time, situation. Moves all ext x4 PSYCH: Appropriate mood and affect. Assessment and Plan - Assessment (1) Pulmonary embolism Code(s): I26.99 - Other pulmonary embolism without acute cor pulmonale Status : Acute (2) Chest pain, rule out acute myocardial infarction Code(s): R07.9 - Chest pain, unspecified Status: Acute (3) Epigastric abdominal pain Code(s): R10.13 - Epigastric pain Status: Acute (4) Stomach discomfort Code(s): R10.9 - Unspecified abdominal pain Status: Acute - Plan 1) Chest pain secondary to bilateral PE Discussed with primary team, transferred to [facility] 2) Hemodynamically stable Reviewed echo Increased pulmonary pressures RV with free wall moving Plan to repeat echo in a few months in the office 3) Elevated trop secondary to PE 4) Mild CAD by cath 5) Doubt due to previous surgery Should have further work up per Heme/Onc Can be done outpt 6) Cardiovascularly stable for discharge
[2018-01-25 13:15] VITALS: PULSE 94
== END 2018-01-25 13:55 | disposition home or self-care (01) ==
LOC: NEPE 23:07 → NEDA 23:07 → HCIS 01-22 06:38
PROVIDERS: ADMIT Family Medicine; ATTEND Family Medicine